=== PATIENT | female | born 1935 | race Caucasian/White ===

== ENCOUNTER 2020-07-07 09:01 | Outpatient (REF) | payer SELFPAY | END 2020-07-07 09:02 | disposition home or self-care (01) | LOC: HO.HAP 09:01 | PROVIDERS: Visit Provider Internal Medicine | DX: Z46.1 Encounter for fitting and adjustment of hearing aid (principal) | CPT/HCPCS: 92700 ==

== ENCOUNTER 2020-07-31 10:18 | Outpatient (REF) | payer SELFPAY | END 2020-07-31 10:19 | disposition home or self-care (01) | LOC: HO.HAP 10:18 | PROVIDERS: PCP Internal Medicine; Referring Provider Internal Medicine; Visit Provider Internal Medicine | DX: Z46.1 Encounter for fitting and adjustment of hearing aid (principal) | CPT/HCPCS: V5264 ==

== ENCOUNTER 2020-09-07 12:25 | Outpatient (REF) | payer SELFPAY | END 2020-09-07 12:26 | disposition home or self-care (01) | LOC: HO.HAP 12:25 | PROVIDERS: PCP Internal Medicine; Referring Provider Internal Medicine; Visit Provider Internal Medicine | DX: Z13.89 Encounter for screening for other disorder (principal) | CPT/HCPCS: 92700 ==

== ENCOUNTER 2021-01-03 09:58 | Outpatient (REF) | payer SELFPAY | END 2021-01-03 09:59 | disposition home or self-care (01) | LOC: HO.HAP 09:58 | PROVIDERS: Visit Provider Internal Medicine | DX: Z13.89 Encounter for screening for other disorder (principal) ==

== ENCOUNTER 2021-01-09 10:04 | Outpatient (REF) | payer SELFPAY | END 2021-01-09 10:05 | disposition home or self-care (01) | LOC: HO.HAP 10:04 | PROVIDERS: Visit Provider Internal Medicine | DX: Z13.89 Encounter for screening for other disorder (principal) ==

== ENCOUNTER 2021-01-30 09:39 | Outpatient (REF) | payer MEDICARE, SELFPAY ==
--- NOTE | 2021-01-30 14:58 | MHC.AU.HAS ---
Hearing Aid Evaluation Date of Visit: 01/30/21 Historical Information: Description of Hearing: Moderate to moderately severe sensorineural hearing loss bilaterally. Current personal amplification information, if applicable: Oticon Mayte 2 Pro RITE Summary: Patient has been unhappy with the RITE aids and would like to try an ITE style. She is hesitant to spend the money but agree to try them Hearing Aid Prescription: Based on the individual?s shared listening needs, communication environments, dexterity, desire for connectivity, and personal preferences, the following prescription for amplification has been made: Right ear: Hotel Operation Manager: Veeda Model: Hill 1600 ITE-R Battery Size: Rechargeable Color: [place] Left ear: Left ear prescription to be same as Right Hearing Aid above: Hotel Operation Manager: Gloria Model: Hill 1600 ITE-R Battery Size: Rechargeable Color: [place] Plan of Care: Patient wishes to purchase hearing aids as prescribed Action Taken/Action Needed: [place] Impressions Taken Medical Clearance to be requested from PCP/ENT Comments: Patient was undecided when she left. Son called to say go ahead with the order. She is hoping to get them fit before a wedding she is going to on February 10, but [facility] is not currently doing [facility] services. Did not put deposit down so will have to include in billing for fitting. Primary Diagnosis: H90.3 Bilateral Sensorineural Hearing Loss Signature: Provider: Andre Carmen, CCC-A
--- NOTE | 2021-01-30 14:59 | MHC.AU.AHA ---
Adult Audiological Evaluation Date of Visit: 01/30/21 Reason for Appointment: Audiological evaluation to monitor the status of Ms. Polk's hearing loss. She has a known bilateral sensorineural hearing loss and uses hearing aids. She feels that her hearing is gradually worsening. Previous Hearing Test Results: 04/13/2019- Moderate sloping to moderately severe sensorineural hearing loss bilaterally. Medical History: Medical History: Cancer Medical History: Abdominal aortic aneurysm, bladder cancer treated surgically, Melanoma, Congestive Heart failure, right and left carotid surgery Hearing Instrument History- Right Ear: Primary Special Educator: Oticon Model: Mayte 2 Pro cicaydaE Serial Number: [id number] Battery Size: 312 Repair Warranty: 03/24/18 Loss and Damage Warranty: 03/24/17 Dispensed By: [facility] Date of Fittin03/27/2016 Hearing Instrument History- Left Ear: Primary Special Educator: Oticon Model: Mayte 2 Pro cicaydaE Serial Number: [id number] Battery Size: 312 Warranty: 03/24/18 Loss and Damage Warranty: 03/24/17 Dispensed By: [facility] Date of Fittin03/27/2016 Otoscopy: Right Ear: Unremarkable Left Ear: Unremarkable Tympanometry: Tympanometry performed due to: To assess integrity of the middle ear system Right Ear: Normal Middle Ear System (Type A) Left Ear: Normal Middle Ear System (Type A) Hearing Evaluation: Transducer(s) Used: Insert Earphones, Bone Conduction Method: Conventional Stimuli Used: Pure tones Right Ear: Description of Hearing: Moderate sloping to moderately severe sensorineural hearing loss from 250-8000 Hz. Left Ear: Description of Hearing: Moderate sloping to moderately severe sensorineural hearing loss from 250-8000 Hz. Speech Recognition Threshold (SRT): Method Used: Monitored Live Voice Stimuli Used: Spondee Words Right Ear: 50 dBHL Left Ear: 45 dBHL Word Discrimination: Method: Recorded Lists Word Lists Used: NU-6 Right Ear: 72% at 85 dBHL Left Ear: 60% at 86 dBHL Most Comfortable Level (MCL): Right Ear: 70 dBHL Left Ear: 70 dBHL Comparison: Compared to the most recent evaluation: Hearing is stable. Word discrimination scores have decreased bilaterally. Recommendations: Audiological re-evaluation in one year. Trial with updated hearing aid technology in an ITE rechargeable aid is recommended. Discussed options. Patient decided she would like to trial Gloria Hill ITE-R aids. Aids ordered. Diagnosis: Primary Diagnosis: H90.3 Bilateral Sensorineural Hearing Loss Services Performed: Comprehensive Audiological Evaluation (CPT 29029) Tympanometry (CPT 72134) Signature: Provider: Andre Carmen, CCC-A
--- NOTE | 2021-01-30 15:00 | MHC.AU.MED ---
Medical Clearance for Hearing Instrumentation Date: 02/01/21 Patient Name: Kim Polk Date of : 1935 Referring Provider: Alli Logan MD We have seen your patient on 02/01/21 and have determined that they are a candidate for amplification (See accompanying report). Specifically, they would benefit from: Hearing aid use in both ears There is a statute that addresses Medical Evaluation Requirements prior to fitting a patient with a hearing aid. According to [place] statute 265 CMR:6.03(1), (a) General. Except as provided in 265 CMR 6.03(1)(b), a engineer sergeant shall not sell a hearing aid unless the prospective user has presented to the engineer sergeant a written statement signed by a licensed physician that states that the patient's hearing loss has been medically evaluated and the patient may be considered a candidate for a hearing aid. The medical evaluation must have taken place within the preceding six months. Please note: Due to the [place] Statute referenced above, we cannot accept a signature other than that of a licensed physician. FLUX CORE WELDER and PA signatures cannot be accepted. I am in agreement with the above recommendation. There is no medical contraindication for hearing instrumentation. Physician Signature Date Physician Name (Printed)
== END 2021-01-30 09:40 | disposition home or self-care (01) ==
LOC: HO.SH 09:39
PROVIDERS: Visit Provider Internal Medicine
DX: H90.3 Sensorineural hearing loss, bilateral (principal)
CPT/HCPCS: 92557; 92567

== ENCOUNTER 2021-02-08 15:27 | Outpatient (REF) | payer MEDICARE, SELFPAY | END 2021-02-08 15:28 | disposition home or self-care (01) | LOC: HO.HAP 15:27 | PROVIDERS: Visit Provider Internal Medicine | DX: Z46.1 Encounter for fitting and adjustment of hearing aid (principal); H90.3 Sensorineural hearing loss, bilateral | CPT/HCPCS: 92591; V5260; V5299 ==

== ENCOUNTER 2021-02-21 09:34 | Outpatient (REF) | payer SELFPAY | END 2021-02-21 09:35 | disposition home or self-care (01) | LOC: HO.HAP 09:34 | PROVIDERS: Visit Provider Internal Medicine | DX: Z13.89 Encounter for screening for other disorder (principal) ==

== ENCOUNTER 2021-02-22 19:25 | Emergency (ER) | payer MEDICARE, SELFPAY ==
--- NOTE | ~2021-02-22 | XR_ITS ---
EXAMINATION: XR TIBIA AND FIBULA, LEFT CLINICAL INFORMATION: Injury. COMPARISON: None TECHNIQUE: AP and lateral views of the left tibia and fibula were obtained. FINDINGS: The bones and soft tissues are normal. No fracture. There is an old avulsion fracture tip of medial malleolus. XR/XR tibia fibula LT 2V IMPRESSION: No acute fracture or bony abnormality left tibia or fibula.
[2021-02-22 19:39] VITALS: BP 176/71; PULSE 94; RESP 18; TEMP 36.8; O2SAT 94; BMI 24.5
--- NOTE | 2021-02-22 20:38 | ED.LOWEXIN ---
HPI - Extremity Injury (Lower) General Chief Complaint: Extremity Injury, Lower Stated Complaint: clot? Time Seen by Provider: 02/22/21 20:34 History of Present Illness HPI Narrative: Patient complains of painful swelling on right leg after she kicked her park into the edge of the car door when entering the car, she is taking Coumadin for a lower extremity DVT, no other injury no other complaint, this happened earlier this evening Related Data Allergies Allergy/AdvReac Type Severity Reaction Status Date / Time cashew nut Allergy Hives Verified 02/22/21 19:38 Latex, Natural Rubber Allergy Hives Verified 02/22/21 19:38 Penicillins [PCN] Allergy Hives Verified 02/22/21 19:38 shellfish derived Allergy Hives Verified 02/22/21 19:38 Sulfa (Sulfonamide Allergy Hives Verified 02/22/21 19:38 Antibiotics) Review of Systems Review of Systems: Positive for painful swollen area left lower park area Negatives are no fever no chills no dizziness no fainting no weakness no headache no chest pain no shortness of breath no numbness or weakness, no other injury Yes all other systems are reviewed and are negative PMFSH Past Medical History Source: nursing notes reviewed Medical History (Updated 02/23/21 @ 00:01 by Mel Harris) Aortic aneurysm, abdominal Bladder cancer Congestive heart failure (CHF) TIA (transient ischemic attack) Surgical History (Updated 02/22/21 @ 19:43 by Tami Walters) H/O carotid endarterectomy Social History Social History Advance Directives: No Advance Directives Information Provided: Yes Physical Exam Vital Signs: Vital Signs: Last Vital Signs Temp 98.3 F 02/22/21 19:39 Pulse 94 02/22/21 19:39 Resp 18 02/22/21 19:39 BP 176/71 H 02/22/21 19:39 Pulse Ox 94 02/22/21 19:39 Body Mass Index 24.5 General appearance is no acute distress, relaxed and cooperative Head is normocephalic atraumatic Neck is supple The chest is clear to auscultation bilaterally with symmetric equal breath sounds Heart no murmur auscultated Extremities the left lower pretibial part of the leg has an area of purple red swelling, hematoma with a raised palpable cord at the center, there is no surrounding erythema no other tenderness she has full range of motion in the knee and the ankle Neuro no acute motor or sensory deficit Course Course Course Narrative: X-ray was negative, patient ambulates comfortably, no laceration to sew and patient is discharged with diagnosis of hematoma MDM - Extremity Injury (Lower) Lab Data Labs: Lab Results 02/22/21 Range/Units 20:42 PT 32.9 H (10.8-13.0) SEC INR 2.7 H (0.9-1.1) Discharge Plan Discharge Clinical Impression: Hematoma of left lower leg Patient Disposition: Home, Self-Care Additional Instructions: I did not see any bony injury on the x-ray Her INR was 2.7 in the good range I believe it is a collection of blood under the skin that will resolve over time Return to ER any time for spreading redness worse pain and swelling, any worse condition or any concerns Interventions: ED Discharge Assessment Last Done: 02/22/21 21:16 Discharge Date/Time: 02/22/21 21:21
[2021-02-22 20:59] LABS: INTERNATIONAL NORM RATIO 2.7 (0.9-1.1); Prothrombin Time 32.9 SEC (10.8-13.0)
== END 2021-02-22 21:21 | disposition home or self-care (01) ==
PROVIDERS: Physician Assistant Medical; Emergency Provider Emergency Medicine Emergency Medical Services; PCP Internal Medicine
DX: S80.12XA Contusion of left lower leg, initial encounter (principal); R60.0 Localized edema; X58.XXXA Exposure to other specified factors, initial encounter; Y93.9 Activity, unspecified; Y92.9 Unspecified place or not applicable; Y99.9 Unspecified external cause status
CPT/HCPCS: 36415; 73590; 85610; 99283

== ENCOUNTER 2021-06-17 08:55 | Emergency (ER) | payer MEDICARE, SELFPAY ==
[2021-06-17] VITALS (8 sets, daily range): BP systolic 107–216; BP diastolic 59–94; PULSE 75–93; RESP 16; TEMP 36.7; O2SAT 96; BMI 25.0
--- NOTE | ~2021-06-17 | CT_ITS ---
EXAMINATION: CT HEAD WITHOUT CONTRAST CLINICAL INFORMATION: Fall. Head trauma. COMPARISON: None TECHNIQUE: Contiguous axial imaging was performed from the skull base to vertex without intravenous administration of contrast. This CT examination was performed using dose optimization techniques as appropriate, variously including the following: *Automated exposure control *Adjustment of mA and/or kV according to patient size (this includes techniques or standardized protocols for targeted exams where dose is matched to indication/reason for exam; i.e. extremities or head) *Use of iterative reconstruction technique DLP: 5 6 5 mGy-cm FINDINGS: There is no evidence of an extra-axial collection. There is no evidence of intra-axial or extra-axial hemorrhage. The ventricles and extra-axial CSF spaces are prominent suggestive of generalized atrophy. There is nonspecific periventricular white matter disease. 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 No mass, mass effect or acute infarct is seen. No skull fracture is seen. There is soft tissue swelling over the right posterior cortex of the skull. Visualized paranasal sinuses, mastoid air cells and ears are clear. CT/CT head/brain wo con IMPRESSION: No acute intracranial images. Generalized atrophy, nonspecific periventricular white matter disease and old right basal ganglia lacunar infarct. Scalp hematoma over the high posterior skull. No skull fracture is seen.
--- NOTE | ~2021-06-17 | XR_ITS ---
EXAMINATION: BILATERAL TIBIA AND FIBULA. CLINICAL INFORMATION: Fracture. COMPARISON: None TECHNIQUE: 2 views each tibia and fibula. FINDINGS: Right tibia: There is no visible acute fracture, dislocation or subluxation. The ankle mortise and subtalar joints are normal. There is a small retrocalcaneal enthesophyte. Left tibia and fibula: There is no visible acute fracture or dislocation is old avulsion injury tip of medial malleolus. The ankle mortise and subtalar joints are normal. There is minimal lateral malleolar soft tissue swelling. XR/XR tibia fibula RT 2V IMPRESSION: Small retrocalcaneal enthesophyte. No acute fracture or dislocation right tibia and fibula. Old avulsion injury tip of medial malleolus. No visible acute fracture or dislocation left tibia and fibula. There is minimal lateral malleolar soft tissue swelling
--- NOTE | ~2021-06-17 | CT_ITS ---
EXAMINATION: CT CERVICAL SPINE WITHOUT CONTRAST CLINICAL INFORMATION: Fall. Trauma. COMPARISON: None TECHNIQUE: Axial images through the cervical spine without contrast. Sagittal and coronal reconstructions on the technologist workstation were performed. This CT examination was performed using dose optimization techniques as appropriate, variously including the following: *Automated exposure control *Adjustment of mA and/or kV according to patient size (this includes techniques or standardized protocols for targeted exams where dose is matched to indication/reason for exam; i.e. extremities or head) *Use of iterative reconstruction technique DLP: 374 mGy-cm FINDINGS: There is mild 2 mm posterior subluxation of C5 and C6 with respect to C4 and C7. Bone alignment is otherwise normal. No fracture or dislocation is seen. There is degenerative spondylosis and degenerative disc disease, greatest at C5-C6 and C6-C7. There are degenerative changes at the C1 dens articulation. Prevertebral soft tissues are normal. There is bilateral carotid calcification. There are surgical clips in the bilateral lateral neck. The left lobe of the thyroid gland is slightly enlarged and nodular. The lung apices are clear. There is evidence of severe atherosclerotic disease with heavy calcification of the aortic arch and great vessel origins. The right brachiocephalic artery appears ectatic measuring 1.[address]/CT cervical spine wo con IMPRESSION: Degenerative changes. No fracture or dislocation seen.
--- NOTE | ~2021-06-17 | XR_ITS ---
EXAMINATION: BILATERAL TIBIA AND FIBULA. CLINICAL INFORMATION: Fracture. COMPARISON: None TECHNIQUE: 2 views each tibia and fibula. FINDINGS: Right tibia: There is no visible acute fracture, dislocation or subluxation. The ankle mortise and subtalar joints are normal. There is a small retrocalcaneal enthesophyte. Left tibia and fibula: There is no visible acute fracture or dislocation is old avulsion injury tip of medial malleolus. The ankle mortise and subtalar joints are normal. There is minimal lateral malleolar soft tissue swelling. XR/XR tibia fibula LT 2V IMPRESSION: Small retrocalcaneal enthesophyte. No acute fracture or dislocation right tibia and fibula. Old avulsion injury tip of medial malleolus. No visible acute fracture or dislocation left tibia and fibula. There is minimal lateral malleolar soft tissue swelling
--- NOTE | 2021-06-17 09:59 | ECG_ITS ---
Test Reason : FALL Blood Pressure : / mmHG Vent. Rate : 082 BPM Atrial Rate : 066 BPM P-R Int : 000 ms QRS Dur : 086 ms QT Int : 394 ms P-R-T Axes : 000 109 027 degrees QTc Int : 460 ms Atrial fibrillation Rightward axis Septal infarct , age undetermined Abnormal ECG No previous ECGs available Referred By: Galen Olsen Electronically Signed By:ANTONIO HOWARD
--- NOTE | 2021-06-17 10:07 | ED_ITS ---
HPI - General Adult General Chief complaint: Fall Stated complaint: FALL HEAD INJ Time Seen by Provider: 06/17/21 09:41 Source: patient Mode of arrival: ambulatory Limitations: no limitations History of Present Illness HPI narrative: Patient presents to ED for fall. Patient states this morning she got up from bed and she turned around and felt her legs gave out which causes to fall and hit her head on a night stand patient states she fell backwards onto her butt. Patient states mild headache. Patient is on blood thinner. Patient denies any loss of consciousness. She denies any dizziness, chest pain, heada cecil, abdominal pain, or shortness of breath before falling. Daughter and patient states this happened many times before and actually evaluated by physical therapy they cannot find a cause why her legs giving out. Patient only complains slight headache since fall. Related Data Allergies Allergy/AdvReac Type Severity Reaction Status Date / Time cashew nut Allergy Hives Verified 02/22/21 19:38 Latex, Natural Rubber Allergy Hives Verified 02/22/21 19:38 Penicillins [PCN] Allergy Hives Verified 02/22/21 19:38 shellfish derived Allergy Hives Verified 02/22/21 19:38 Sulfa (Sulfonamide Allergy Hives Verified 02/22/21 19:38 Antibiotics) Review of Systems Review of Systems: Yes all other systems are reviewed and are negative Constitutional: Constitutional: Reports as per HPI, Reports no additional constitutional complaints and Reports headache(s) Eyes: Eyes: Reports as per HPI and Reports no additional eye complaints ENT: Reports system reviewed and no additional complaints, except as documented, Reports as per HPI and Reports headache(s) Cardiovascular: Cardiovascular: Reports as per HPI and Reports no additional cardiovascular complaints Respiratory: Respiratory: Reports as per HPI and Reports no additional respiratory complaints Gastrointestinal: Gastrointestinal: Reports as per HPI and Reports no additional gastrointestinal complaints Genitourinary: Genitourinary: Reports no additional female genitourinary complaints and Reports as per HPI Musculoskeletal: Musculoskeletal: Reports no additional musculoskeletal c omplaints and Reports as per HPI Neurologic: Reports system reviewed and no additional complaints, except as documented, Reports as per HPI and Reports headache(s) Psychiatric: Psychiatric: Reports no additional psychiatric complaints and Reports as per HPI PMF Past Medical History Medical History (Updated 06/17/21 @ 14:45 by JORGE Forte) Aortic aneurysm, abdominal Bladder cancer Congestive heart failure (CHF) TIA (transient ischemic attack) Surgical History (Updated 02/22/21 @ 19:43 by Tami Walters) H/O carotid endarterectomy Social History Social History Alcohol intake: never Smoked in Last 30 Days: No Use of substances other than those prescribed or required for medical reasons: No Advance Directives: Yes Advance Directives Information Provided: No Advance Directives on File: No Physical Exam Vital Signs: Vital Signs: Last Vital Signs Temp 98.1 F 06/17/21 09:46 Pulse 85 06/17/21 16:13 Resp 16 06/17/21 14:51 BP 107/64 06/17/21 16:46 Pulse Ox 96 06/17/21 09:46 Oxygen Flow Rate 1 06/17/21 09:46 Body Mass Index 25.0 Const: General: cooperative, healthy appearing, comfortable, no acute distress, well developed, alert and awake Orientation/consciousness: patient oriented x3 HENMT: Head: Yes normal to inspection, Yes No palpable skull fracture present, Yes normocephalic and Yes abrasion (posterior hip) Head images: 1. Superficial abrasion. Mildly tenderness on palpation. Eyes: General: appearance normal, both eyes and all related structures Neck: Neck: Yes normal visual inspection, Yes full ROM, Yes no lymphadenopathy, Yes no meningeal signs, Yes trachea midline, Yes supple and No tender Chest: Chest palpation & inspection: normal inspection of the chest and normal palpation of entire chest wall Resp: Effort & Inspection: normal respiratory effort and able to speak in complete sentences Auscultation: clear to auscultation bilaterally GI: Inspection: Yes normal to inspection and No abdominal wall ecchymosis Palpation (GI): Soft to palpation, not firm, nontender, no guarding and not rigid : General: No CVA tenderness and Yes no CVA tenderness Back/Spine/Pelvis: Back: no CVA tenderness, No CVA tenderness and No back tenderness Skin: General skin exam: no rashes or lesions noted and elasticity normal Neuro: Other: Baseline can not really stand for long. Walked with walker this morning. Negative for slurred speech. Negative for facial droop. All extremities equal strength 5+. finger to nose and rapid hand movement intact.. General: patient oriented x3, no meningeal signs and CN's II-XI intact taya aterally Cranial nerves: Yes CN's II-XII intact bilaterally Extrem: Other: Patient able to move all extremities with equal strength. General: Yes normal to inspection and Yes full ROM Course Course Course Narrative: History physical exam indicate more mechanical exam below the basic labs EKG to make sure things are okay. Daughter states mother been evaluated many times for this in regards of legs giving out on her falling. Reevaluation(s) Reevaluation #1: EKG shows atrial fibrillation. Patient has passed medical history of atrial fibrillation. Troponin came back elevated. I went to re- evaluate patient and patient denies any chest pain or shortness of breath. Patient denies any history of any heart surgery or heart attacks. Spoke with Dr. Murry of Cardiology and he states just repeat a 2nd troponin and PE very unlikely due to patient on Coumadin. He states if troponin increased morning 50% than she need sfurther evaluation. He states if troponin decreased than patient can be dischargd. Orthostatics negative Time: 11:18 Reevaluation #2: Patient's 2nd troponin decreased. Patient presently asymptomatic. Presently patient be evaluated by adult protective caseworker emmanuel. Time: 14:04 Reevaluation #3: manager pmo Jamin organized visiting nurse and home physical therapy for patient. Patient will be spending the night at [facility]. Time: 14:40 Additional Reevaluation(s): Patient blood pressure was elevated to ED visit. Patient has history of high blood pressure but was taken off meds years ago because she was very sensitive to calcium channel blockers, ALISHA inhibitors, and beta blockers. Her daughter states patient will become hypotensive in the morning when she was on meds so PCP disconstinued high blood pressure medication. Patient is given clonidine 1 dose amlodipine and blood pressure dropped and resolved. Daughter and patient was informed they would not be disc harged with any blood pressure medication due to her sensitivity to high blood pressure medications and the fear of her being hypotensive at home. They will follow-up with her PCP tomorrow 16:42 Medical Decision Making MDM Narrative Medical decision making narrative: Fall. Contusion Differential Diagnosis Differential Diagnosis: Head injury fall Lab Data Result diagrams: 06/17/21 10:12 06/17/21 10:12 Labs: Lab Results 06/17/21 06/17/21 06/17/21 Range/Units 10:12 10:12 10:12 WBC 7.6 (4.8-10.8) X10*3/uL RBC 4.55 (4.20-5.50) X10*6/uL Hgb 13.5 (12.0-16.0) g/dl Hct 43.1 (37-47) % MCV 94.7 (80-98) fL MCH 29.7 (27.0-33.0) pg MCHC 31.3 (31.0-35.0) g/dl RDW 16.9 H (11.0-16.0) % Plt Count 179 (160-400) X10*3/uL MPV 10.4 (9.4-12.3) fL Immature Gran % (Auto) 0.3 (0.0-0.4) % Neut % (Auto) 82.6 H (45-73) % Lymph % (Auto) 9.1 L (20-40) % [place] % (Auto) 7.5 (2-11) % Eos % (Auto) 0.4 (0-4) % Baso % (Auto) 0.1 (0-2) % Lymph # (Auto) 0.7 L (1.2-4.9) X10*3/uL [place] # (Auto) 0.6 (0.1-1.2) X10*3/uL Eos # (Auto) 0.0 (0.0-0.4) X10*3/uL Baso # (Auto) 0.0 (0.0-0.2) X10*3/uL Abs Immat Gran (auto) 0.02 (0.00-0.03) X10*3/uL Absolute Neuts (auto) 6.3 (2.0-8.3) X10*3/uL Absolute Nucleated RBC 0.000 (0.0-0.012) X10*3/uL Nucleated RBC % (auto) 0.0 (0.0-0.2) /100WBC PT 25.9 H (9.9-13.0) SEC INR 2.2 H (0.9-1.1) APTT 56.1 H (24.1-38.0) SEC Sodium 138 (135-145) mmol/L Potassium 4.8 (3.3-5.1) mmol/L Chloride 94 L (96-108) mmol/L Carbon Dioxide 34 H (22-29) mmol/L Anion Gap 15 (12-20) BUN 27 H (9-16) mg/dL Creatinine 1.11 (0.5-1.4) mg/dL Estim Creat Clear Calc 30.6 Estimated GFR 47 Random Glucose 84 (60-115) mg/dL Calcium 10.1 (8.4-10.2) mg/dL Total Bilirubin 1.3 H (0.0-1.0) mg/dL AST 33 H (5-31) U/L ALT 10 (0-31) U/L Alkaline Phosphatase 63 (39-117) U/L Troponin I High Sens (<3.5-17.0) ng/L Total Protein 6.3 L (6.5-8.0) g/dL Albumin 3.8 (3.5-5.0) g/dL 06/17/21 06/17/21 Range/Units 10:12 13:19 WBC (4.8-10.8) X10*3/uL RBC (4.20-5.50) X10*6/uL Hgb (12.0-16.0) g/dl Hct (37-47) % MCV (80-98) fL MCH (27.0-33.0) pg MCHC (31.0-35.0) g/dl RDW (11.0-16.0) % Plt Count (160-400) X10*3/uL MPV (9.4-12.3) fL Immature Gran % (Auto) (0.0-0.4) % Neut % (Auto) (45-73) % Lymph % (Auto) (20-40) % [place] % (Auto) (2-11) % Eos % (Auto) (0-4) % Baso % (Auto) (0-2) % Lymph # (Auto) (1.2-4.9) X10*3/uL [place] # (Auto) (0.1-1.2) X10*3/uL Eos # (Auto) (0.0-0.4) X10*3/uL Baso # (Auto) (0.0-0.2) X10*3/uL Abs Immat Gran (auto) (0.00-0.03) X10*3/uL Absolute Neuts (auto) (2.0-8.3) X10*3/uL Absolute Nucleated RBC (0.0-0.012) X10*3/uL Nucleated RBC % (auto) (0.0-0.2) /100WBC PT (9.9-13.0) SEC INR (0.9-1.1) APTT (24.1-38.0) SEC Sodium (135-145) mmol/L Potassium (3.3-5.1) mmol/L Chloride (96-108) mmol/L Carbon Dioxide (22-29) mmol/L Anion Gap (12-20) BUN (9-16) mg/dL Creatinine (0.5-1.4) mg/dL Estim Creat Clear Calc Estimated GFR Random Glucose (60-115) mg/dL Calcium (8.4-10.2) mg/dL Total Bilirubin (0.0-1.0) mg/dL AST (5-31) U/L ALT (0-31) U/L Alkaline Phosphatase (39-117) U/L Troponin I High Sens 158.7 H* 111.4 H* (<3.5-17.0) ng/L Total Protein (6.5-8.0) g/dL Albumin (3.5-5.0) g/dL ECG Data Interpretation: Atrial fibrillation. Ventricular rate 82. QRS 86. QTC 460. Negative STEMI Discharge Plan Discharge Clinical Impression: Head injury Patient Disposition: Home, Self-Care Instructions: Head Injury (ED), Fall Prevention (ED) Additional Instructions: Return to the ED immediately for any chest pain, shortness of breath, headache, vomiting, rectal bleeding, vomiting blood, dizziness, slurred speech, loss of vision, paralysis of extremities, or any other concerning symptoms. Please follow-up with the primary care provider Interventions: ED Discharge Assessment Last Done: 06/17/21 16:46 Discharge Date/Time: 06/17/21 16:47 Print Language: Finnish
[2021-06-17 10:17] LABS: Basophils Percent Auto 0.1 % (0-2); Eosinophils Percent Auto 0.4 % (0-4); Hematocrit 43.1 % (37-47); Hemoglobin 13.5 g/dl (12.0-16.0); Imm Gran Abs Auto 0.02 X10*3/uL (0.00-0.03); Imm Gran Pct Auto 0.3 % (0.0-0.4); Lymphocytes Absolute Auto 0.7 X10*3/uL (1.2-4.9); Lymphocytes Percent Auto 9.1 % (20-40); MANUAL DIFF FLAG NO; Mean Corpuscular HGB Conc 31.3 g/dl (31.0-35.0); Mean Corpuscular Hemoglobin 29.7 pg (27.0-33.0); Mean Corpuscular Volume 94.7 fL (80-98); Mean Platelet Volume 10.4 fL (9.4-12.3); Monocytes Absolute Auto 0.6 X10*3/uL (0.1-1.2); Monocytes Percent Auto 7.5 % (2-11); Neutrophils Absolute Auto 6.3 X10*3/uL (2.0-8.3); Neutrophils Percent Auto 82.6 % (45-73); Platelet Count 179 X10*3/uL (160-400); Red Blood Count 4.55 X10*6/uL (4.20-5.50); Red Cell Distribution Width 16.9 % (11.0-16.0); White Blood Count 7.6 X10*3/uL (4.8-10.8)
[2021-06-17 10:28] LABS: INTERNATIONAL NORM RATIO 2.2 (0.9-1.1); Prothrombin Time 25.9 SEC (9.9-13.0)
[2021-06-17 10:31] LABS: Partial Thromboplastin Time 56.1 SEC (24.1-38.0)
[2021-06-17 10:39] LABS: Alanine Aminotransferase 10 U/L (0-31); Albumin Level 3.8 g/dL (3.5-5.0); Alkaline Phosphatase 63 U/L (39-117); Anion Gap 15 (12-20); Aspartate Amino Transferase 33 U/L (5-31); Bilirubin Total 1.3 mg/dL (0.0-1.0); Blood Urea Nitrogen 27 mg/dL (9-16); Calcium 10.1 mg/dL (8.4-10.2); Carbon Dioxide 34 mmol/L (22-29); Chloride 94 mmol/L (96-108); Creatinine Clr Calc Pharmacy 30.6; Estimated Glomerular Filt Rate 47; Glucose Random 84 mg/dL (60-115); Potassium 4.8 mmol/L (3.3-5.1); Sodium 138 mmol/L (135-145); Total Protein 6.3 g/dL (6.5-8.0)
[2021-06-17 10:45] LABS: Troponin-I High Sensitivity 158.7 ng/L (<3.5-17.0)
[2021-06-17 13:48] LABS: Troponin-I High Sensitivity 111.4 ng/L (<3.5-17.0)
--- NOTE | 2021-06-17 14:12 | PC.NURSE ---
pt awaiting cm
--- NOTE | 2021-06-17 14:17 | MHC.CM.ED ---
per request from P.A. and pt's daughter a ref. has been made to [facility] for nsg and home PT. [facility] was notified that patient will be staying at daughter's home after dc from the [facility] e.d. address and phone numbers for daughter , anibal, where given to [facility]. cm to cont. to follow. PA and RN in the e.d. are aware of this dc plan.
[2021-06-17] MEDS: cloNIDine HCL 0.2 MG TABLET PO (15:05)
[2021-06-17] MEDS: amLODIPine Besylate 5 MG TABLET PO (16:13)
== END 2021-06-17 16:47 | disposition home or self-care (01) ==
PROVIDERS: Physician Assistant; Emergency Provider Emergency Medicine Emergency Medical Services; PCP Internal Medicine
DX: S09.90XA Unspecified injury of head, initial encounter (principal); G44.309 Post-traumatic headache, unspecified, not intractable; W06.XXXA Fall from bed, initial encounter; Y93.9 Activity, unspecified; Y92.003 Bedroom of unspecified non-institutional (private) residence as the place of occurrence of the external cause; Y99.9 Unspecified external cause status; Z79.899 Other long term (current) drug therapy; Z91.81 History of falling
CPT/HCPCS: 36415; 70450; 72125; 73590; 80053; 84484; 85025; 85610; 85730; 93005; 99285

== ENCOUNTER 2021-08-14 13:04 | Outpatient (REF) | payer SELFPAY ==
--- NOTE | 2021-08-17 11:56 | MHC.AU.HFU ---
Hearing Instrument Follow-Up- Binaural Date of Visit: 08/14/21 Right Ear: Online Education Manager: Mavent Model: Hill 1600 ITC-R Serial Number: [id number] Repair Warranty: 03/08/2024 Battery Size: Rechargeable Color: Luyando Glue Spreading Machine Operator: Size 2 85 gain Type of Wax Guard: Hear Clear Dispensed By: [facility] Date of Fittin02/08/2021 Left Ear:Online Education Manager: Gloria Model: Hill 1600 ITC-R Serial Number: [id number] Repair Warranty: 03/08/2024 Battery Size: Rechargeable Color: Luyando Glue Spreading Machine Operator: Size 3 85 gain Type of Wax Guard: Hear Clear Dispensed By: [facility] Date of Fittin02/08/2021 Follow-Up Summary: Hearing Aid Problem - Patient is accompanied today by her son. They report Kim is not hearing well with the aids is constantly pushing the aids, either because she feels the aids are coming out of the ears and/or she is not hearing well and tries to change the volume level. She hits the volume control and sometimes turns the aids completely off when inserting aids and when pushing the aids because she is afraid they are moving out. She is getting very frustrated because sounds are either too loud or too soft. Discussed the problem and possible solutions. Decided to DEACTIVATE THE VOLUME CONTROL AND THE MUTE FUNCTION TO MAKE EVERYTHING AUTOMATIC. Patient reports the sound quality still feels muffled despite being at the middle setting all the time. Based on the audiogram, decreased louds and moderate sounds at 750-2000 Hz 3 dB and increased overall at 0143-2109 Hz approximately 6 dB. Patient reported clearer sound after the adjustment while in the office. Patient will try as set. CALLED [facility] AND SPOKE WITH TIM ABOUT THE POTENTIAL LOOSE FIT OF THE AIDS TO DISCUSS POSSIBLE SOLUTIONS. SHE RECOMMENDS EITHER TAKING NEW IMPRESSIONS TO MAKE CANAL LENGTH LONGER OR ADD A SOFT COAT TO THE AIDS. I asked if the faceplate could be more recessed, but due to the needed components they cannot be recessed any farther. Patient does not want to send the aids in at this time. If problem persists she will schedule an appointment. Recommendations:Hearing instrument follow-up or maintenance as needed. Please contact our clinic with any questions or concerns. Diagnosis Code(s):Primary Diagnosis: H90.3 Bilateral Sensorineural Hearing Loss Services Performed:RILEY Non-Quantity Charges: HANC: NonBillable Event Signature: Provider: Andre Vance, JOJO-A
== END 2021-08-14 13:05 | disposition home or self-care (01) ==
LOC: HO.HAP 13:04
PROVIDERS: Visit Provider Internal Medicine
DX: Z13.89 Encounter for screening for other disorder (principal)

== ENCOUNTER 2021-09-05 09:09 | Inpatient (IN) | payer MEDICARE, SELFPAY ==
[2021-09-05] VITALS (12 sets, daily range): BP systolic 102–197; BP diastolic 44–100; PULSE 79–113; RESP 15–20; TEMP 36.6–36.9; O2SAT 77–100; BMI 25.4
--- NOTE | ~2021-09-05 | CT_ITS ---
EXAMINATION: CT HEAD WITHOUT CONTRAST CLINICAL INFORMATION: Leg weakness and shakiness COMPARISON: Previous head CT May 2021 TECHNIQUE: Contiguous axial imaging was performed from the skull base to vertex without intravenous administration of contrast. This CT examination was performed using dose optimization techniques as appropriate, variously including the following: *Automated exposure control *Adjustment of mA and/or kV according to patient size (this includes techniques or standardized protocols for targeted exams where dose is matched to indication/reason for exam; i.e. extremities or head) *Use of iterative reconstruction technique DLP: 524 mGy-cm FINDINGS: There is no evidence of an extra-axial collection. There is no evidence of intra-axial or extra-axial hemorrhage. Ventricles and extra-axial CSF spaces are slightly prominent suggestive of mild generalized atrophy. There is nonspecific periventricular white matter disease. 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 No mass, mass effect or acute infarct is seen. Review of bone windows is normal. No skull fracture is seen. Visualized mastoid air cells, paranasal sinuses and middle ears are clear. CT/CT head/brain wo con IMPRESSION: No acute findings. No change from May 2021 exam.
--- NOTE | ~2021-09-05 | CT_ITS ---
EXAMINATION: CT CHEST WITHOUT CONTRAST CLINICAL INFORMATION: Shortness of breath. Abnormal chest x-ray. COMPARISON: Chest radiograph done on 09/10/2021. TECHNIQUE: Multidetector volumetric CT imaging of the chest was done. Axial MIP volume rendering provided. Sagittal and coronal reformatted images were obtained. This CT examination was performed using dose optimization techniques as appropriate, variously including the following: *Automated exposure control *Adjustment of mA and/or kV according to patient size (this includes techniques or standardized protocols for targeted exams where dose is matched to indication/reason for exam; i.e. extremities or head) *Use of iterative reconstruction technique DLP: 119 mGy-cm FINDINGS: CERAMIC TILE SETTER: Abnormal showing evidence of dense opacification at left lung base. LUNGS: There is significant asymmetric low lung volume noted within the left hemithorax with ipsilateral displacement of the mediastinum showing moderate to severe collapse consolidation of the left lower lobe, and multifocal patchy groundglass airspace disease within the left upper lobe and dense airspace consolidation within the lingula. Dense airspace consolidation is also noted within the right lung base. Evidence of pleural-based focal thickening is noted within the posterior medial aspect of the mid part of the right hemithorax (266:7). Remainder of the aerated right lung is clear. The tracheobronchial tree is patent however, the left lower lobe as well as the central part of the left upper lobe bronchi are not visualized, possibility of central endobronchial lesion especially involving the left lower lobe may have similar appearance. MEDIASTINUM: Multiple shotty precarinal lymph nodes are noted. There is evidence of cardiomegaly present involving all 4 cardiac chambers. Extensive atherosclerotic disease of the aorta and is branches including significant coronary arterial calcifications are noted. Mitral valve annular calcification is also noted. The main pulmonary artery is enlarged, measures 4.2 cm as compared to the measurement of the adjacent aorta which is measuring 3.7 cm. The finding would be suspicious for underlying pulmonary arterial hypertension. PLEURA: Bilateral trace/small simple appearing nondrainable pleural effusions (right greater than left) are noted. AXILLA: No lymphadenopathy. UPPER ABDOMEN: Remarkable for thickening of both adrenal glands without any discrete mass. OSSEOUS STRUCTURES: No suspicious focal lesion. CT/CT chest wo con IMPRESSION: 1. Abnormal study. Asymmetric low lung volume within the left hemithorax with moderate to severe collapse consolidation of left lower lobe and multifocal patchy airspace disease within the left upper lobe. Dense airspace consolidation is also noted within the lingula and right lower lobe of the lung. A central endobronchial lesion involving the left lower lobe of the lung may have similar appearance. 2. Bilateral trace/small simple appearing nondrainable pleural effusions (right greater than left) are noted. 3. Thickening of both adrenal glands without any discrete mass. 4. Extensive atherosclerotic disease of the aorta and is branches including significant coronary artery calcifications and likely pulmonary arterial hypertension Fleischner guidelines were followed.
--- NOTE | ~2021-09-05 | XR_ITS ---
EXAMINATION: XR CHEST CLINICAL INFORMATION: Dyspnea COMPARISON: None TECHNIQUE: AP portable view of the chest was obtained. FINDINGS: The cardiopericardial silhouette is enlarged. No evidence of airspace edema. There is some mild peribronchial cuffing present. There is bibasilar disease present with question small pleural effusions. There is some fluid seen along the horizontal fissure. No pneumothorax. XR/XR chest 1V IMPRESSION: Cardiomegaly without airspace edema. There does appear to be some pulmonary vascular congestion with some interstitial prominence which may be related to early interstitial edema. Bilateral lower lobe disease with probable pleural effusions.
--- NOTE | ~2021-09-05 | XR_ITS ---
EXAMINATION: XR CHEST CLINICAL INFORMATION: SOB. COMPARISON: None TECHNIQUE: Frontal view of the chest was obtained. FINDINGS: The lungs are well-expanded increased pulmonary vascularity suggestive of mild pulmonary vascular congestion. There is mild haziness throughout the left lung likely underlying pleural effusion. Heart size is enlarged. No gross bony modality. XR/XR chest 1V IMPRESSION: Cardiomegaly with CHF. Underlying infiltrate is not excluded. There is diffuse opacification of left lung likely underlying pleural effusion.
--- NOTE | 2021-09-05 09:26 | ECG_ITS ---
Test Reason : sob Blood Pressure : / mmHG Vent. Rate : 101 BPM Atrial Rate : 000 BPM P-R Int : 000 ms QRS Dur : 094 ms QT Int : 358 ms P-R-T Axes : 000 115 -21 degrees QTc Int : 464 ms Atrial flutter with variable block with premature ventricular or aberrantly conducted complexes Left posterior fascicular block Abnormal ECG When compared with ECG of 17-JUN-2021 10:34, Atrial flutter present Referred By: Crissy Mejia Electronically Signed By:Tavares Murry
--- NOTE | 2021-09-05 09:30 | ED_ITS ---
HPI - Weakness General Chief complaint: Dyspnea Stated complaint: SOB Time Seen by Provider: 09/05/21 09:18 Source: patient, EMS and old records reviewed Mode of arrival: EMS Limitations: no limitations History of Present Illness Complaint: difficulty walking Onset (ago): month(s) (but this AM her legs felt shaky and weak) Duration: constant Location: LLE and RLE Migration: none Severity: mild Quality: other (they feel shaky) Relieving factors: none Exacerbating factors: movement Context: history of similar Associated symptoms: denies other symptoms and other (daughter told EMS that this AM she went to check on her and noted her sats were low 70s when laying flat on her normal 1L NC recently on bumex and metolazone) Related Data Home Medications Medication Instructions Recorded Confirmed Bifidobacterium infantis 10.5 mg 10.5 mg PO DAILY 09/05/21 09/05/21 (10 million cell) chewable tablet (Align) albuterol sulfate 90 mcg/actuation 2 puff INHALATION Q4H PRN 09/05/21 09/05/21 aerosol inhaler allopurinol 100 mg tablet 100 tab PO DAILY 09/05/21 09/05/21 amlodipine 2.5 mg tablet 2.5 tab PO DAILY 09/05/21 09/05/21 aspirin 81 mg chewable tablet 81 mg PO DAILY 09/05/21 09/05/21 brimonidine 0.2 % eye drops 1 drp OPHTHALMIC (EYE) BID 09/05/21 09/05/21 bumetanide 2 mg tablet 2 mg PO SUTUTHSA@2100 09/05/21 09/05/21 bumetanide 2 mg tablet 4 mg PO MOWEFR@2100 09/05/21 09/05/21 cholecalciferol (vitamin D3) 50 50 mcg PO DAILY 09/05/21 09/05/21 mcg (2,000 unit) tablet (Vitamin D3) docusate sodium 100 mg capsule 100 mg PO DAILY 09/05/21 09/05/21 (Colace) ezetimibe 10 mg tablet 10 mg PO DAILY 09/05/21 09/05/21 fentanyl 50 mcg/hr transdermal 1 patch TOPICAL Q3D 09/05/21 09/05/21 patch gabapentin 100 mg capsule 200 mg PO BEDTIME 09/05/21 09/05/21 inulin 2 gram chewable tablet 8 g PO DAILY 09/05/21 09/05/21 (Fiber Gummies) lactase 3,000 unit tablet (Lactaid) 3,000 unit PO QID PRN 09/05/21 09/05/21 latanoprost 0.005 % eye drops 1 drp OPHTHALMIC (EYE) BEDTIME 09/05/21 09/05/21 metolazone 5 mg tablet 5 mg PO SA@0900 09/05/21 09/05/21 multivitamin 1 tab PO DAILY 09/05/21 09/05/21 red yeast rice 600 mg tablet 600 mg PO DAILY 09/05/21 09/05/21 umeclidinium 62.5 mcg/actuation 1 puff INHALATION DAILY 09/05/21 09/05/21 blister powder for inhalation (Incruse Ellipta) vitamins A,C,Q-vgzr-tcwfyu 14,320 1 cap PO BID 09/05/21 09/05/21 unit-226 mg-200 unit capsule (PreserVision AREDS) warfarin 2.5 mg tablet 2.5 mg PO DAILY@1800 09/05/21 09/05/21 Allergies Allergy/AdvReac Type Severity Reaction Status Date / Time cashew nut Allergy Hives Verified 02/22/21 19:38 Latex, Natural Rubber Allergy Hives Verified 02/22/21 19:38 Penicillins [PCN] Allergy Hives Verified 02/22/21 19:38 shellfish derived Allergy Hives Verified 02/22/21 19:38 Sulfa (Sulfonamide Allergy Hives Verified 02/22/21 19:38 Antibiotics) Review of Systems Review of Systems: Constitutional : No Weight loss, No Fever, No Chills, No Fatigue, No Malaise ENT/Mouth : No sore throat, No Rhinorrhea Eyes: No Eye Pain, No Swelling, No Redness Cardiovascular : No Chest Pain, No SOB, No Dyspnea on Exertion, No Orthopnea, No Edema, No Palpitations Respiratory : No Cough, No Sputum, No Wheezing Gastrointestinal : No Nausea, No Vomiting, No Diarrhea, No Constipation, No abdominal Pain, No Hematochezia, No Melena Genitourinary : No Dysuria, No Urinary Frequency, No Hematuria, Musculoskeletal : No joint pain, No Myalgias, No Joint Swelling Skin : No Skin Lesions, No rash Neuro : pos Weakness, No Numbness, No Dizziness, No Headache, pos diff walking at times Psych : No Anxiety/Panic, No Depression Heme/Lymph: No Bruising, No Bleeding,No Lymphadenopathy Endocrine : No Polyuria, No Polydipsia All other systems reviewed and are negative [facility] Past Medical History Attestation statement: The following information was validated with the patient. Medical History (Updated 09/05/21 @ 11:45 by Crissy Mejia DO) Afib Aortic aneurysm, abdominal Bladder cancer Congestive heart failure (CHF) TIA (transient ischemic attack) Surgical History (Updated 02/22/21 @ 19:43 by Tami Walters) H/O carotid endarterectomy Social History Social History (Updated 09/05/21 @ 09:32 by Crissy Mejia DO) Alcohol intake: never Patient Tobacco Use Status: Never used Tobacco Use of substances other than those prescribed or required for medical reasons: No Advance Directives: No Advance Directives Information Provided: No Physical Exam Vital Signs: Vital Signs: Last Vital Signs Temp 98.2 F 09/05/21 09:38 Pulse 102 H 09/05/21 11:45 Resp 15 09/05/21 11:45 BP 186/71 H 09/05/21 11:45 Pulse Ox 95 09/05/21 11:45 Oxygen Flow Rate 1 09/05/21 09:38 BMI result Body Mass Index 25.4 Appearance: Alert. Oriented X3. No acute distress. Eyes: Pupils equal, round and reactive to light. ENT: Pharynx normal. Neck: Normal inspection. Neck supple. CVS: Normal heart rate and rhythm. Pulses normal. Respiratory: No respiratory distress. Breath sounds diminished at bases, fine rales noted Abdomen: Soft and non-tender. Skin: Skin warm and dry. Normal skin color. Normal skin turgor. Extremities: No lower extremity edema. L anterior park hematoma noted Neuro: Oriented X 3. No motor deficit. No sensory deficit. Course Course Course Narrative: no WBC count afebrile suspect CHF, given IV bumex on arrival, BP improved 93% on 3L NC patient denies dyspnea, RR 20 BP fluctuates up and down DNR/DNI per [facility] notes, compensated VBG review of [facility] notes show that her BP does fluctuate up and down from 200s to low 100s at times and in the past has been taken off medications MDM - Weakness MDM Narrative Medical decision making narrative: 85 yo female with hx of CHF, aortic aneurysm, TIA, on coumadin here with c/o LE weakness and feeling her legs are shaky she denies falling recently - her daughter did note that this morning her sats were low in the 70s while laying flat she denies CP/SOB to me but her sats were 89% on arrival in the ED on her baseline 1L NC. Will obtain labs, EKG, CXR, bnp, tro ponin, COVID swab, given xopenex. Dispo per results and findings. Lab Data Result diagrams: 09/05/21 11:12 09/05/21 11:10 Labs: Lab Results 09/05/21 09/05/21 09/05/21 Range/Units 11:10 11:10 11:10 WBC (4.8-10.8) X10*3/uL RBC (4.20-5.50) X10*6/uL Hgb (12.0-16.0) g/dl Hct (37.0-47.0) % MCV (80.0-98.0) fL MCH (27.0-33.0) pg MCHC (31.0-35.0) g/dl RDW (11.0-16.0) % Plt Count (160-400) X10*3/uL MPV (9.4-12.3) fL Immature Gran % (Auto) (0.0-0.4) % Neut % (Auto) (45-73) % Lymph % (Auto) (20-40) % [place] % (Auto) (2-11) % Eos % (Auto) (0-4) % Baso % (Auto) (0-2) % Lymph # (Auto) (1.2-4.9) X10*3/uL [place] # (Auto) (0.1-1.2) X10*3/uL Eos # (Auto) (0.0-0.4) X10*3/uL Baso # (Auto) (0.0-0.2) X10*3/uL Abs Immat Gran (auto) (0.00-0.03) X10*3/uL Absolute Neuts (auto) (2.0-8.3) x10*3/uL Absolute Nucleated RBC (0.0-0.012) X10*3/uL Nucleated RBC % (auto) (0.0-0.2) /100WBC PT 20.0 H (9.9-13.0) SEC INR 1.7 H (0.9-1.1) APTT 50.5 H (24.1-38.0) SEC VBG pH (7.32-7.43) VBG pCO2 mmHg VBG pO2 mmHg VBG HCO3 (22-26) mmol/L VBG O2 Saturation % VBG Base Excess mmol/L Sodium 140 (135-145) mmol/L Potassium 3.5 D (3.3-5.1) mmol/L Chloride 83 L (96-108) mmol/L Carbon Dioxide 47 H* D (22-29) mmol/L Anion Gap 14 (12-20) BUN 25 H (9-16) mg/dL Creatinine 0.81 (0.5-1.4) mg/dL Estim Creat Clear Calc 42.2 Estimated GFR > 60 Random Glucose 108 (60-115) mg/dL Calcium 10.1 (8.4-10.2) mg/dL Magnesium 1.9 (1.6-2.6) mg/dL Total Bilirubin 1.5 H (0.0-1.0) mg/dL Direct Bilirubin 1.0 H (0.0-0.5) mg/dL AST 32 H (5-31) U/L ALT 15 (0-31) U/L Alkaline Phosphatase 89 D (39-117) U/L Troponin I High Sens (<3.5-17.0) ng/L B-Natriuretic Peptide (<100) pg/mL Total Protein 6.9 (6.5-8.0) g/dL Albumin 4.0 (3.5-5.0) g/dL Urine Color Urine Appearance Urine pH (5.0-8.0) Ur Specific [place] (1.005-1.025) Urine Protein (NEG-TRACE) MG/DL Urine Glucose (UA) (NEG) MG/DL Urine Ketones (NEG) MG/DL Urine Blood (NEG) Urine Nitrite (NEG) Ur Leukocyte Esterase (NEG) Urine RBC (0) /HPF Urine WBC (0-4) /HPF Ur Squamous Epith Cells /LPF Urine Bacteria /LPF COVID-19 ([facility]) Negative (Negative) COVID-19 Clin Com See Note 09/05/21 09/05/21 09/05/21 Range/Units 11:10 11:12 11:12 WBC 9.8 (4.8-10.8) X10*3/uL RBC 4.24 (4.20-5.50) X10*6/uL Hgb 12.8 (12.0-16.0) g/dl Hct 42.4 (37.0-47.0) % MCV 100.0 H (80.0-98.0) fL MCH 30.2 (27.0-33.0) pg MCHC 30.2 L (31.0-35.0) g/dl RDW 16.4 H (11.0-16.0) % Plt Count 245 (160-400) X10*3/uL MPV 9.5 (9.4-12.3) fL Immature Gran % (Auto) 0.3 (0.0-0.4) % Neut % (Auto) 78.4 H (45-73) % Lymph % (Auto) 9.5 L (20-40) % [place] % (Auto) 8.2 (2-11) % Eos % (Auto) 3.3 (0-4) % Baso % (Auto) 0.3 (0-2) % Lymph # (Auto) 0.9 L (1.2-4.9) X10*3/uL [place] # (Auto) 0.8 (0.1-1.2) X10*3/uL Eos # (Auto) 0.3 (0.0-0.4) X10*3/uL Baso # (Auto) 0.0 (0.0-0.2) X10*3/uL Abs Immat Gran (auto) 0.03 (0.00-0.03) X10*3/uL Absolute Neuts (auto) 7.7 (2.0-8.3) x10*3/uL Absolute Nucleated RBC 0.000 (0.0-0.012) X10*3/uL Nucleated RBC % (auto) 0.0 (0.0-0.2) /100WBC PT (9.9-13.0) SEC INR (0.9-1.1) APTT (24.1-38.0) SEC VBG pH (7.32-7.43) VBG pCO2 mmHg VBG pO2 mmHg VBG HCO3 (22-26) mmol/L VBG O2 Saturation % VBG Base Excess mmol/L Sodium (135-145) mmol/L Potassium (3.3-5.1) mmol/L Chloride (96-108) mmol/L Carbon Dioxide (22-29) mmol/L Anion Gap (12-20) BUN (9-16) mg/dL Creatinine (0.5-1.4) mg/dL Estim Creat Clear Calc Estimated GFR Random Glucose (60-115) mg/dL Calcium (8.4-10.2) mg/dL Magnesium (1.6-2.6) mg/dL Total Bilirubin (0.0-1.0) mg/dL Direct Bilirubin (0.0-0.5) mg/dL AST (5-31) U/L ALT (0-31) U/L Alkaline Phosphatase (39-117) U/L Troponin I High Sens 82.5 H* (<3.5-17.0) ng/L B-Natriuretic Peptide 800 H (<100) pg/mL Total Protein (6.5-8.0) g/dL Albumin (3.5-5.0) g/dL Urine Color Urine Appearance Urine pH (5.0-8.0) Ur Specific [place] (1.005-1.025) Urine Protein (NEG-TRACE) MG/DL Urine Glucose (UA) (NEG) MG/DL Urine Ketones (NEG) MG/DL Urine Blood (NEG) Urine Nitrite (NEG) Ur Leukocyte Esterase (NEG) Urine RBC (0) /HPF Urine WBC (0-4) /HPF Ur Squamous Epith Cells /LPF Urine Bacteria /LPF COVID-19 ([facility]) (Negative) COVID-19 Clin Com 09/05/21 09/05/21 Range/Units 11:43 12:15 WBC (4.8-10.8) X10*3/uL RBC (4.20-5.50) X10*6/uL Hgb (12.0-16.0) g/dl Hct (37.0-47.0) % MCV (80.0-98.0) fL MCH (27.0-33.0) pg MCHC (31.0-35.0) g/dl RDW (11.0-16.0) % Plt Count (160-400) X10*3/uL MPV (9.4-12.3) fL Immature Gran % (Auto) (0.0-0.4) % Neut % (Auto) (45-73) % Lymph % (Auto) (20-40) % [place] % (Auto) (2-11) % Eos % (Auto) (0-4) % Baso % (Auto) (0-2) % Lymph # (Auto) (1.2-4.9) X10*3/uL [place] # (Auto) (0.1-1.2) X10*3/uL Eos # (Auto) (0.0-0.4) X10*3/uL Baso # (Auto) (0.0-0.2) X10*3/uL Abs Immat Gran (auto) (0.00-0.03) X10*3/uL Absolute Neuts (auto) (2.0-8.3) x10*3/uL Absolute Nucleated RBC (0.0-0.012) X10*3/uL Nucleated RBC % (auto) (0.0-0.2) /100WBC PT (9.9-13.0) SEC INR (0.9-1.1) APTT (24.1-38.0) SEC VBG pH 7.38 (7.32-7.43) VBG pCO2 96 mmHg VBG pO2 57 mmHg VBG HCO3 58 H (22-26) mmol/L VBG O2 Saturation 80.0 % VBG Base Excess 25.7 mmol/L Sodium (135-145) mmol/L Potassium (3.3-5.1) mmol/L Chloride (96-108) mmol/L Carbon Dioxide (22-29) mmol/L Anion Gap (12-20) BUN (9-16) mg/dL Creatinine (0.5-1.4) mg/dL Estim Creat Clear Calc Estimated GFR Random Glucose (60-115) mg/dL Calcium (8.4-10.2) mg/dL Magnesium (1.6-2.6) mg/dL Total Bilirubin (0.0-1.0) mg/dL Direct Bilirubin (0.0-0.5) mg/dL AST (5-31) U/L ALT (0-31) U/L Alkaline Phosphatase (39-117) U/L Troponin I High Sens (<3.5-17.0) ng/L B-Natriuretic Peptide (<100) pg/mL Total Protein (6.5-8.0) g/dL Albumin (3.5-5.0) g/dL Urine Color YELLOW Urine Appearance CLEAR Urine pH 6.5 (5.0-8.0) Ur Specific [place] 1.010 (1.005-1.025) Urine Protein 1+ H (NEG-TRACE) MG/DL Urine Glucose (UA) NEG (NEG) MG/DL Urine Ketones NEG (NEG) MG/DL Urine Blood NEG (NEG) Urine Nitrite NEG (NEG) Ur Leukocyte Esterase 1+ H (NEG) Urine RBC 0 (0) /HPF Urine WBC 10-14 H (0-4) /HPF Ur Squamous Epith Cells 2+ /LPF Urine Bacteria TRACE /LPF COVID-19 ([facility]) (Negative) COVID-19 Clin Com ECG Data Attestation: I personally reviewed and interpreted this ECG as follows: ECG interpretation date: 09/05/21 ECG interpretation time: 10:37 Interpretation: Rate: 100s Rhythm: afib with PVCs [place]: right Normal P waves. Normal ALE. Normal QRS complex. ST T wave : no BRIA< nonspecific inverted III and avf qTC: normal prior studies: no sig change from 05/2021 The study has been interpreted contemporaneously by me. . Discharge Plan Discharge Clinical Impression: Congestive heart failure Qualifiers: Heart failure type: unspecified Heart failure chronicity: acute on chronic Qualified Code(s): I50.9 - Heart failure, unspecified Patient Disposition: Admitted As Inpatient
[2021-09-05] MEDS: amLODIPine Besylate 2.5 MG TABLET PO (10:37)
[2021-09-05] MEDS: Bumetanide 1 MG/4 ML VIAL IVPUSH (10:56)
--- NOTE | 2021-09-05 11:06 | PHA.MEDREC ---
Pharmacy Consult ? Medication Reconciliation Pharmacy has completed the medication reconciliation. Patient had list of medications that line up with medication claim history. Per the list patient is no longer taking Breo. Maryam Ellis, JamiD
[2021-09-05 11:15] LABS: MANUAL DIFF FLAG NO
[2021-09-05 11:18] LABS: Basophils Percent Auto 0.3 % (0-2); Eosinophils Absolute Auto 0.3 X10*3/uL (0.0-0.4); Eosinophils Percent Auto 3.3 % (0-4); Hematocrit 42.4 % (37.0-47.0); Hemoglobin 12.8 g/dl (12.0-16.0); Imm Gran Abs Auto 0.03 X10*3/uL (0.00-0.03); Imm Gran Pct Auto 0.3 % (0.0-0.4); Lymphocytes Absolute Auto 0.9 X10*3/uL (1.2-4.9); Lymphocytes Percent Auto 9.5 % (20-40); Mean Corpuscular HGB Conc 30.2 g/dl (31.0-35.0); Mean Corpuscular Hemoglobin 30.2 pg (27.0-33.0); Mean Platelet Volume 9.5 fL (9.4-12.3); Monocytes Absolute Auto 0.8 X10*3/uL (0.1-1.2); Monocytes Percent Auto 8.2 % (2-11); Neutrophils Absolute Auto 7.7 x10*3/uL (2.0-8.3); Neutrophils Percent Auto 78.4 % (45-73); Platelet Count 245 X10*3/uL (160-400); Red Blood Count 4.24 X10*6/uL (4.20-5.50); Red Cell Distribution Width 16.4 % (11.0-16.0); White Blood Count 9.8 X10*3/uL (4.8-10.8)
[2021-09-05 11:23] LABS: INTERNATIONAL NORM RATIO 1.7 (0.9-1.1)
[2021-09-05 11:26] LABS: Partial Thromboplastin Time 50.5 SEC (24.1-38.0)
[2021-09-05 11:32] LABS: COVID-19 Test Negative (Negative); IDNOW Serial# 9DD0AD1C
[2021-09-05 11:41] LABS: B Type Natriuretic Peptide 800 pg/mL (<100)
[2021-09-05 11:49] LABS: Troponin-I High Sensitivity 82.5 ng/L (<3.5-17.0)
[2021-09-05 11:50] LABS: Alanine Aminotransferase 15 U/L (0-31); Alkaline Phosphatase 89 U/L (39-117); Anion Gap 14 (12-20); Aspartate Amino Transferase 32 U/L (5-31); Bilirubin Total 1.5 mg/dL (0.0-1.0); Blood Urea Nitrogen 25 mg/dL (9-16); Calcium 10.1 mg/dL (8.4-10.2); Carbon Dioxide 47 mmol/L (22-29); Chloride 83 mmol/L (96-108); Creatinine Clr Calc Pharmacy 42.2; Estimated Glomerular Filt Rate > 60; Glucose Random 108 mg/dL (60-115); Magnesium 1.9 mg/dL (1.6-2.6); Potassium 3.5 mmol/L (3.3-5.1); Sodium 140 mmol/L (135-145); Total Protein 6.9 g/dL (6.5-8.0)
[2021-09-05 11:56] LABS: Appearance Urine CLEAR; Color Urine YELLOW; Glucose Urine UA NEG (NEG); Leukocyte Esterase Urine 1+ (NEG); Nitrite Urine NEG (NEG); PH 6.5 (5.0-8.0); UACC Culture Trigger YES; Urine Blood NEG (NEG); Urine Ketones NEG (NEG); Urine Protein 1+ MG/DL (NEG-TRACE)
[2021-09-05 12:04] LABS: Bacteria Urine TRACE /LPF; RBC Urine 0 /HPF (0); Squamous Epithelial Cell Urine 2+ /LPF
[2021-09-05 12:21] LABS: VBG Base Excess 25.7 mmol/L; VBG HCO3 58 mmol/L (22-26); VBG pCO2 96 mmHg; VBG pH 7.38 (7.32-7.43); VBG pO2 57 mmHg
[2021-09-05 12:23] LABS: Venous Blood Gas Refer to POC result
[2021-09-05] MEDS: methylPREDNISolone Sod Succ 125 MG/2 ML VIAL 60 MG IVPUSH ×2 (13:24→21:45)
--- NOTE | 2021-09-05 13:27 | PC.NURSE ---
pt/daughter anibal aware of plan of care for admission to hosp.
--- NOTE | 2021-09-05 14:49 | PM.IMHP ---
History of Present Illness Date of Service: 09/05/21 Chief Complaint: lower extremity weakness, hypoxia 85F with pmh of chornic diastolic chf, chronic hypoxic respiratory failure on 1L home o2 for copd, brought in for hypoxia. patient has had worsening lower extremity weakness and 10Lbs weight gain over the past few weeks. she recently added on metolazone to her bumex. she was noted to be significantly hypoxic at home, in the 70s, patient herself denies any sob. in ED noted to have some vascular congestion on CXR, vbg showed ph 7.38, pco2 96, bicarb 47. she was given iv bumex and steroids. Review of Systems Review of Systems: Constitutional: Denies fever, denies Chills, 10lbs weight gain Eyes: denies blurry vision ENT: denies sore throat CVS: denies chest pain Respiratory: Denies dyspnea GI: no abdominal pain : denies dysuria MSK: denies neck pain Skin: denies rash Neuro: lower extremity weakness Psych: denies suicidal ideation Endocrine: denies heat/cold intolerance Hematologic: denies easy bleeding Allergy: denies hives [facility] Medical History Afib Aortic aneurysm, abdominal Bladder cancer Chronic diastolic (congestive) heart failure Chronic respiratory failure with hypoxia Congestive heart failure (CHF) COPD (chronic obstructive pulmonary disease) History of DVT (deep vein thrombosis) Peripheral vascular disease TIA (transient ischemic attack) Family History (Updated 09/05/21 @ 15:00 by Steve Harrell MD) Mother CAD (coronary artery disease) Surgical History H/O carotid endarterectomy Social History Alcohol intake: never Patient Tobacco Use Status: Never used Tobacco Use of substances other than those prescribed or required for medical reasons: No Advance Directives: No Advance Directives Information Provided: No Meds Allergies Allergy/AdvReac Type Severity Reaction Status Date / Time cashew nut Allergy Hives Verified 02/22/21 19:38 Latex, Natural Rubber Allergy Hives Verified 02/22/21 19:38 Penicillins [PCN] Allergy Hives Verified 02/22/21 19:38 shellfish derived Allergy Hives Verified 02/22/21 19:38 Sulfa (Sulfonamide Allergy Hives Verified 02/22/21 19:38 Antibiotics) Active Medications: Current Medications Acetazolamide (Acetazolamide Sodium 500 Mg Vial) 250 mg IVPUSH TID [facility] Albuterol/Ipratropium (Albuterol/Iprat 2.5/0.5mg 3 Ml Ampul.Neb) 3 ml INHALE RQ4H PRN PRN Reason: sob Allopurinol (Allopurinol 100 Mg Tablet) 10,000 mg PO DAILY [facility] Amlodipine Besylate (Amlodipine Besylate 2.5 Mg Tablet) 6.25 mg PO DAILY [facility]; Protocol Aspirin (Aspirin 81 Mg Tab.Chew) 81 mg PO DAILY [facility] Brimonidine Tartrate (Brimonidine Tartrate 0.2% Oph 5 Ml Bottle) 1 drop EYE-BOTH BID [facility] Bumetanide (Bumetanide 1 Mg Tablet) 2 mg PO SUTUTHSA@2100 [facility]; Protocol Bumetanide (Bumetanide 1 Mg Tablet) 4 mg PO MOWEFR@2100 [facility]; Protocol Docusate Sodium (Docusate Sodium 100 Mg Capsule) 100 mg PO DAILY [facility] Ezetimibe (Ezetimibe 10 Mg Tablet) 10 mg PO DAILY [facility] Fentanyl (Fentanyl 50 Mcg Patch.Td72) mcg TRANSDERMA Q3D [facility] Gabapentin (Gabapentin 100 Mg Capsule) 200 mg PO BEDTIME [facility] Lactase (Lactase Tablet) tab PO QID PRN PRN Reason: gi upset Latanoprost (Latanoprost 0.005 % Ophth Bernarda 2.5 Ml Drops) 1 drop EYE-BOTH BEDTIME [facility] Methylprednisolone Sodium Succinate (Methylprednisolone Sod Succ 125 Mg/2 Ml Vial) 60 mg IVPUSH Q12H [facility] Multivitamins/Vitamin C (Multivitamin Tablet) 1 tab PO DAILY [facility] Non-Formulary Medication (Vitamins A,C,C-Gtre-Ypcqdb [Preservision Areds]) 1 cap PO BID [facility] Pharmacy Consult (Consult Rx Perform Med Rec) 1 each MISCELLANE ONCE PRN PRN Reason: Consult order Sodium Chloride (0.9 % Sodium Chloride Flush 3 Ml Syringe) 3 ml IVFLUSH QSHIFT [facility] Vitamin D (Cholecalciferol (Vitamin D3) 25 Mcg Tablet) 50 mcg PO DAILY [facility] Warfarin Sodium (Warfarin Sodium 2.5 Mg Tablet) 2.5 mg PO DAILY@1800 [facility] Home Medications Medication Instructions Recorded Confirmed Last Taken Type Bifidobacterium infantis 10.5 mg 10.5 mg PO DAILY 09/05/21 09/05/21 Unknown History (10 million cell) chewable tablet (Align) albuterol sulfate 90 mcg/actuation 2 puff INHALATION Q4H PRN 09/05/21 09/05/21 Unknown History aerosol inhaler allopurinol 100 mg tablet 100 tab PO DAILY 09/05/21 09/05/21 Unknown History amlodipine 2.5 mg tablet 2.5 tab PO DAILY 09/05/21 09/05/21 Unknown History aspirin 81 mg chewable tablet 81 mg PO DAILY 09/05/21 09/05/21 Unknown History brimonidine 0.2 % eye drops 1 drp OPHTHALMIC (EYE) BID 09/05/21 09/05/21 Unknown History bumetanide 2 mg tablet 2 mg PO SUTUTHSA@209909/05/21 09/05/21 Unknown History bumetanide 2 mg tablet 4 mg PO MOWEFR@209909/05/21 09/05/21 Unknown History cholecalciferol (vitamin D3) 50 50 mcg PO DAILY 09/05/21 09/05/21 Unknown History mcg (2,000 unit) tablet (Vitamin D3) docusate sodium 100 mg capsule 100 mg PO DAILY 09/05/21 09/05/21 Unknown History (Colace) ezetimibe 10 mg tablet 10 mg PO DAILY 09/05/21 09/05/21 Unknown History fentanyl 50 mcg/hr transdermal 1 patch TOPICAL Q3D 09/05/21 09/05/21 Unknown History patch gabapentin 100 mg capsule 200 mg PO BEDTIME 09/05/21 09/05/21 Unknown History inulin 2 gram chewable tablet 8 g PO DAILY 09/05/21 09/05/21 Unknown History (Fiber Gummies) lactase 3,000 unit tablet (Lactaid) 3,000 unit PO QID PRN 09/05/21 09/05/21 Unknown History latanoprost 0.005 % eye drops 1 drp OPHTHALMIC (EYE) BEDTIME 09/05/21 09/05/21 Unknown History metolazone 5 mg tablet 5 mg PO SA@0900 09/05/21 09/05/21 Unknown History multivitamin 1 tab PO DAILY 09/05/21 09/05/21 Unknown History red yeast rice 600 mg tablet 600 mg PO DAILY 09/05/21 09/05/21 Unknown History umeclidinium 62.5 mcg/actuation 1 puff INHALATION DAILY 09/05/21 09/05/21 Unknown History blister powder for inhalation (Incruse Ellipta) vitamins A,C,R-lbvb-wjnxrv 14,320 1 cap PO BID 09/05/21 09/05/21 Unknown History unit-226 mg-200 unit capsule (PreserVision AREDS) warfarin 2.5 mg tablet 2.5 mg PO DAILY@1800 09/05/21 09/05/21 Unknown History Physical Exam Vital Signs and Narrative: Vital Signs: Last Vital Signs Temp 98.2 F 09/05/21 09:38 Pulse 91 09/05/21 13:23 Resp 18 09/05/21 13:23 BP 185/73 H 09/05/21 13:23 Pulse Ox 100 09/05/21 13:23 Oxygen Flow Rate 1 09/05/21 09:38 BMI result Body Mass Index 25.4 General: no acute distress, frail HEENT: right eye subconjunctival hemorrhage Neck: normal to visual inspection CVS: S1, S2, irregular, murmur Resp: diminished, exp wheeze Chest: non tender GI: soft, non tender, non distended : no CVA tenderness Skin: no rashes Extremities: no edema Neuro: Oriented X3, grossly intact Psych: cooperative Results Labs CBC and Chem 7: 09/05/21 11:12 09/05/21 11:10 Labs: Laboratory Results - last 24 hr 09/05/21 09/05/21 09/05/21 11:10 11:10 11:10 MCV MCH MCHC RDW Plt Count MPV Immature Gran % (Auto) Neut % (Auto) Lymph % (Auto) [place] % (Auto) Eos % (Auto) Baso % (Auto) Lymph # (Auto) [place] # (Auto) Eos # (Auto) Baso # (Auto) Abs Immat Gran (auto) Absolute Neuts (auto) Absolute Nucleated RBC Nucleated RBC % (auto) PT 20.0 H INR 1.7 H APTT 50.5 H VBG pH VBG pCO2 VBG pO2 VBG HCO3 VBG O2 Saturation VBG Base Excess Anion Gap 14 Estim Creat Clear Calc 42.2 Estimated GFR > 60 Random Glucose 108 Calcium 10.1 Magnesium 1.9 Total Bilirubin 1.5 H Direct Bilirubin 1.0 H AST 32 H ALT 15 Alkaline Phosphatase 89 D Troponin I High Sens B-Natriuretic Peptide Total Protein 6.9 Albumin 4.0 Urine Color Urine Appearance Urine pH Ur Specific [place] Urine Protein Urine Glucose (UA) Urine Ketones Urine Blood Urine Nitrite Ur Leukocyte Esterase Urine RBC Urine WBC Ur Squamous Epith Cells Urine Bacteria COVID-19 ([facility]) Negative COVID-19 Clin Com See Note 09/05/21 09/05/21 09/05/21 11:10 11:12 11:12 MCV 100.0 H MCH 30.2 MCHC 30.2 L RDW 16.4 H Plt Count 245 MPV 9.5 Immature Gran % (Auto) 0.3 Neut % (Auto) 78.4 H Lymph % (Auto) 9.5 L [place] % (Auto) 8.2 Eos % (Auto) 3.3 Baso % (Auto) 0.3 Lymph # (Auto) 0.9 L [place] # (Auto) 0.8 Eos # (Auto) 0.3 Baso # (Auto) 0.0 Abs Immat Gran (auto) 0.03 Absolute Neuts (auto) 7.7 Absolute Nucleated RBC 0.000 Nucleated RBC % (auto) 0.0 PT INR APTT VBG pH VBG pCO2 VBG pO2 VBG HCO3 VBG O2 Saturation VBG Base Excess Anion Gap Estim Creat Clear Calc Estimated GFR Random Glucose Calcium Magnesium Total Bilirubin Direct Bilirubin AST ALT Alkaline Phosphatase Troponin I High Sens 82.5 H* B-Natriuretic Peptide 800 H Total Protein Albumin Urine Color Urine Appearance Urine pH Ur Specific [place] Urine Protein Urine Glucose (UA) Urine Ketones Urine Blood Urine Nitrite Ur Leukocyte Esterase Urine RBC Urine WBC Ur Squamous Epith Cells Urine Bacteria COVID-19 ([facility]) COVID-19 Clin Com 09/05/21 09/05/21 11:43 12:15 MCV MCH MCHC RDW Plt Count MPV Immature Gran % (Auto) Neut % (Auto) Lymph % (Auto) [place] % (Auto) Eos % (Auto) Baso % (Auto) Lymph # (Auto) [place] # (Auto) Eos # (Auto) Baso # (Auto) Abs Immat Gran (auto) Absolute Neuts (auto) Absolute Nucleated RBC Nucleated RBC % (auto) PT INR APTT VBG pH 7.38 VBG pCO2 96 VBG pO2 57 VBG HCO3 58 H VBG O2 Saturation 80.0 VBG Base Excess 25.7 Anion Gap Estim Creat Clear Calc Estimated GFR Random Glucose Calcium Magnesium Total Bilirubin Direct Bilirubin AST ALT Alkaline Phosphatase Troponin I High Sens B-Natriuretic Peptide Total Protein Albumin Urine Color YELLOW Urine Appearance CLEAR Urine pH 6.5 Ur Specific [place] 1.010 Urine Protein 1+ H Urine Glucose (UA) NEG Urine Ketones NEG Urine Blood NEG Urine Nitrite NEG Ur Leukocyte Esterase 1+ H Urine RBC 0 Urine WBC 10-14 H Ur Squamous Epith Cells 2+ Urine Bacteria TRACE COVID-19 ([facility]) COVID-19 Clin Com Imaging Radiologist's Impressions: Impressions Head CT 09/05/21 10:21 IMPRESSION: No acute findings. No change from May 2021 exam. Chest X-Ray 09/05/21 10:24 IMPRESSION: Cardiomegaly without airspace edema. There does appear to be some pulmonary vascular congestion with some interstitial prominence which may be related to early interstitial edema. Bilateral lower lobe disease with probable pleural effusions. Assessment and Plan (1) Acute and chronic respiratory failure with hypoxia: Status: Acute (2) Acute on chronic diastolic CHF (congestive heart failure): Status: Acute (3) COPD (chronic obstructive pulmonary disease): Status: Acute 85F presented withhypoxia and le weakness acute on chronic hypoxic respiratory failure due to acute on chronic diastolic chf with moderate AI and moderate MS and COPD with eacerbation bumex infusion diamox 250mg tid monitor labs closely pulm eval chronic atrial fibrillation will add diltiazem 30mg qid coumadin - goal inr 2-3 monitor history of DVT coumadin weakness PT eval DNR/DNI Quality Stroke Does the patient have a stroke diagnosis?: No VTE Prior VTE?: Yes VTE Risk Level:: Medical - moderate - high VTE Device Contraindication: Treatment Not Indicated VTE Drug Contraindication: N/A - Med Ordered
--- NOTE | 2021-09-05 15:08 | PM.CNPUL ---
History of Present Illness History of Present Illness Consult date: 09/05/21 Requesting physician: Steve Harrell Chief complaint: COPD CHF Narrative: 85-year-old lady, former 40+ pack-year smoker, quit 6 years prior with underlying history of COPD and congestive heart failure, previously seen at [facility] pulmonary Department comment treated with albuterol MDI and Incruse been admitted to general medical hoang for slowly worsening lower extremity edema, 10 lb weight gain, unsteadiness, and wheezing. Her ER workup is remarkable for significantly evaluated serum bicarbonate, elevated BNP, chest x-ray with pulmonary congestion. Patient denies over dyspnea, Cough, sputum production, but does admit to persistent wheezing. Review of Systems Constitutional: Constitutional: Denies daytime sleepiness, Denies excessive sweating, Denies fatigue, Denies fever(s), Denies lethargy, Denies malaise, Denies night sweats, Denies snoring and Denies weight loss Eyes: Eyes: Reports blurry vision and Denies itchy eyes ENT: Denies nasal congestion, Denies post nasal drip, Denies sinus pain, Denies sinus pressure and Denies other ( Thrush) Cardiovascular: Cardiovascular: Denies chest pain, Reports pedal edema, Denies dyspnea, Denies orthopnea and Denies paroxysmal nocturnal dyspnea Respiratory: Respiratory: Denies cough, Denies hemoptysis, Denies excessive phlegm production, Denies dyspnea, Denies snoring and Reports wheezing Gastrointestinal: Gastrointestinal: Denies abdominal pain and Denies heartburn Musculoskeletal: Musculoskeletal: Denies myalgias, Denies arthralgias and Denies joint swelling Integumentary/Breasts: Skin/Breast: Denies rash Neurologic: Denies memory loss and Denies seizure-like activity Psychiatric: Psychiatric: Denies abnormal sleep pattern, Denies anxiety and Denies memory loss Endocrine: Endocrine: Denies excessive sweating, Denies fatigue and Denies heat intolerance Hematologic/Lymphatic: Hematologic/Lymphatic: Reports easy bruising Allergic/Immunologic: Allergic/Immunologic: Denies itchy eyes, Denies seasonal rhinorrhea and Reports wheezing PMFSH Past Medical History Medical History Afib Aortic aneurysm, abdominal Bladder cancer Chronic diastolic (congestive) heart failure Chronic respiratory failure with hypoxia Congestive heart failure (CHF) COPD (chronic obstructive pulmonary disease) History of DVT (deep vein thrombosis) Peripheral vascular disease TIA (transient ischemic attack) Family History Family History (Updated 09/05/21 @ 15:00 by Steve Harrell MD) Mother CAD (coronary artery disease) Surgical History Surgical History H/O carotid endarterectomy Social History Social History Alcohol intake: never Patient Tobacco Use Status: Never used Tobacco Use of substances other than those prescribed or required for medical reasons: No Advance Directives: No Advance Directives Information Provided: No Meds Allergies Allergy/AdvReac Type Severity Reaction Status Date / Time cashew nut Allergy Hives Verified 02/22/21 19:38 Latex, Natural Rubber Allergy Hives Verified 02/22/21 19:38 Penicillins [PCN] Allergy Hives Verified 02/22/21 19:38 shellfish derived Allergy Hives Verified 02/22/21 19:38 Sulfa (Sulfonamide Allergy Hives Verified 02/22/21 19:38 Antibiotics) Active Medications: Current Medications Acetazolamide (Acetazolamide Sodium 500 Mg Vial) 250 mg IVPUSH TID [facility] Albuterol/Ipratropium (Albuterol/Iprat 2.5/0.5mg 3 Ml Ampul.Neb) 3 ml INHALE RQ4H PRN PRN Reason: sob Allopurinol (Allopurinol 100 Mg Tablet) 100 mg PO DAILY [facility] Amlodipine Besylate (Amlodipine Besylate 2.5 Mg Tablet) 2.5 mg PO DAILY [facility]; Protocol Aspirin (Aspirin 81 Mg Tab.Chew) 81 mg PO DAILY [facility] Brimonidine Tartrate (Brimonidine Tartrate 0.2% Oph 5 Ml Bottle) 1 drop EYE-BOTH BID [facility] Diltiazem HCl (Diltiazem Hcl 30 Mg Tablet) 30 mg PO QID [facility]; Protocol Docusate Sodium (Docusate Sodium 100 Mg Capsule) 100 mg PO DAILY [facility] Ezetimibe (Ezetimibe 10 Mg Tablet) 10 mg PO DAILY [facility] Fentanyl (Fentanyl 50 Mcg Patch.Td72) mcg TRANSDERMA Q3D [facility] Gabapentin (Gabapentin 100 Mg Capsule) 200 mg PO BEDTIME [facility] Bumetanide 25 mg/ IV (Miscellaneous Supplies) 100 mls @ 4 mls/hr IVCONT .Q24H [facility] Lactase (Lactase Tablet) 1 tab PO QID PRN PRN Reason: gi upset Latanoprost (Latanoprost 0.005 % Ophth Bernarda 2.5 Ml Drops) 1 drop EYE-BOTH BEDTIME [facility] Methylprednisolone Sodium Succinate (Methylprednisolone Sod Succ 125 Mg/2 Ml Vial) 60 mg IVPUSH Q12H [facility] Multivitamins/Vitamin C (Multivitamin Tablet) 1 tab PO DAILY [facility] Pharmacy Consult (Consult Rx Perform Med Rec) 1 each MISCELLANE ONCE PRN PRN Reason: Consult order Potassium Chloride (Potassium Chloride Er 20 Meq Tab.Er.Prt) 40 meq PO ONCE ONE Stop: 09/05/21 15:06 Sodium Chloride (0.9 % Sodium Chloride Flush 3 Ml Syringe) 3 ml IVFLUSH QSHIFT [facility] Vitamin D (Cholecalciferol (Vitamin D3) 25 Mcg Tablet) 50 mcg PO DAILY [facility] Warfarin Sodium (Warfarin Sodium 2.5 Mg Tablet) 2.5 mg PO DAILY@1800 [facility] Home Medications Medication Instructions Recorded Confirmed Last Taken Type Bifidobacterium infantis 10.5 mg 10.5 mg PO DAILY 09/05/21 09/05/21 Unknown History (10 million cell) chewable tablet (Align) albuterol sulfate 90 mcg/actuation 2 puff INHALATION Q4H PRN 09/05/21 09/05/21 Unknown History aerosol inhaler allopurinol 100 mg tablet 100 tab PO DAILY 09/05/21 09/05/21 Unknown History amlodipine 2.5 mg tablet 2.5 mg PO DAILY 09/05/21 09/05/21 Unknown History aspirin 81 mg chewable tablet 81 mg PO DAILY 09/05/21 09/05/21 Unknown History brimonidine 0.2 % eye drops 1 drp OPHTHALMIC (EYE) BID 09/05/21 09/05/21 Unknown History bumetanide 2 mg tablet 2 mg PO SUTUTHSA@209909/05/21 09/05/21 Unknown History bumetanide 2 mg tablet 4 mg PO MOWEFR@209909/05/21 09/05/21 Unknown History cholecalciferol (vitamin D3) 50 50 mcg PO DAILY 09/05/21 09/05/21 Unknown History mcg (2,000 unit) tablet (Vitamin D3) docusate sodium 100 mg capsule 100 mg PO DAILY 09/05/21 09/05/21 Unknown History (Colace) ezetimibe 10 mg tablet 10 mg PO DAILY 09/05/21 09/05/21 Unknown History fentanyl 50 mcg/hr transdermal 1 patch TOPICAL Q3D 09/05/21 09/05/21 Unknown History patch gabapentin 100 mg capsule 200 mg PO BEDTIME 09/05/21 09/05/21 Unknown History inulin 2 gram chewable tablet 8 g PO DAILY 09/05/21 09/05/21 Unknown History (Fiber Gummies) lactase 3,000 unit tablet (Lactaid) 3,000 unit PO QID PRN 09/05/21 09/05/21 Unknown History latanoprost 0.005 % eye drops 1 drp OPHTHALMIC (EYE) BEDTIME 09/05/21 09/05/21 Unknown History metolazone 5 mg tablet 5 mg PO SA@0900 09/05/21 09/05/21 Unknown History multivitamin 1 tab PO DAILY 09/05/21 09/05/21 Unknown History red yeast rice 600 mg tablet 600 mg PO DAILY 09/05/21 09/05/21 Unknown History umeclidinium 62.5 mcg/actuation 1 puff INHALATION DAILY 09/05/21 09/05/21 Unknown History blister powder for inhalation (Incruse Ellipta) vitamins A,C,T-ceqb-htfzip 14,320 1 cap PO BID 09/05/21 09/05/21 Unknown History unit-226 mg-200 unit capsule (PreserVision AREDS) warfarin 2.5 mg tablet 2.5 mg PO DAILY@1800 09/05/21 09/05/21 Unknown History Physical Exam Vital Signs: Vital Signs: Last Vital Signs Temp 98.2 F 09/05/21 09:38 Pulse 91 09/05/21 13:23 Resp 18 09/05/21 13:23 BP 185/73 H 09/05/21 13:23 Pulse Ox 100 09/05/21 13:23 Oxygen Flow Rate 1 09/05/21 09:38 BMI result Body Mass Index 25.4 Const: General: no acute distress, alert and awake Eyes: Sclerae: scleral abnormal ( right-sided hemorrhages) Corneas: corneas abnormal bilateral diffuse opacification EOM: EOMs intact bilaterally Neck: Neck: Yes no lymphadenopathy, Yes trachea midline and Yes supple Resp: Effort & Inspection: normal respiratory effort and no respiratory distress Auscultation: wheezes expiratory wheezes ( bilateral) Cardio: Rate: regular rate Rhythm: regular rhythm Heart sounds: no gallops, no murmurs and no rubs GI: Palpation (GI): Soft to palpation and Other GI palpation findings present ( Nontender) Auscultation: normal bowel sounds Extrem: General: No clubbing, No cyanosis and Yes edema ( 1+ bilateral) Results Laboratory Findings CBC and BMP: 09/05/21 11:12 09/05/21 11:10 ABG, PT/INR, D-dimer: PT/INR, D-dimer PT 20.0 SEC (9.9-13.0) H 09/05/21 11:10 INR 1.7 (0.9-1.1) H 09/05/21 11:10 Abnormal lab findings: Abnormal Labs 09/05/21 09/05/21 09/05/21 11:10 11:10 11:10 MCV MCHC RDW Neut % (Auto) Lymph % (Auto) Lymph # (Auto) PT 20.0 H INR 1.7 H APTT 50.5 H VBG HCO3 Chloride 83 L Carbon Dioxide 47 H* D BUN 25 H Total Bilirubin 1.5 H Direct Bilirubin 1.0 H AST 32 H Troponin I High Sens 82.5 H* B-Natriuretic Peptide Urine Protein Ur Leukocyte Esterase Urine WBC 09/05/21 09/05/21 09/05/21 11:12 11:12 11:43 MCV 100.0 H MCHC 30.2 L RDW 16.4 H Neut % (Auto) 78.4 H Lymph % (Auto) 9.5 L Lymph # (Auto) 0.9 L PT INR APTT VBG HCO3 Chloride Carbon Dioxide BUN Total Bilirubin Direct Bilirubin AST Troponin I High Sens B-Natriuretic Peptide 800 H Urine Protein 1+ H Ur Leukocyte Esterase 1+ H Urine WBC 10-14 H 09/05/21 12:15 MCV MCHC RDW Neut % (Auto) Lymph % (Auto) Lymph # (Auto) PT INR APTT VBG HCO3 58 H Chloride Carbon Dioxide BUN Total Bilirubin Direct Bilirubin AST Troponin I High Sens B-Natriuretic Peptide Urine Protein Ur Leukocyte Esterase Urine WBC Assessment and Plan (1) COPD (chronic obstructive pulmonary disease): Status: Acute (2) CO2 retention: Status: Acute Impression: 85-year-old lady with underlying advanced supplemental oxygen dependent COPD with chronic CO2 retention and also underlying unclear congestive heart failure admitted with exacerbation of congestive heart failure and COPD. Recommendation: Agree with systemic glucocorticoids and nebulized bronchodilators for treatment of underlying COPD exacerbation with significant wheezing. Agree with aggressive diuresis with Bumex drip and IV acetazolamide. Procedures Date of Service Date of Service: 09/05/21
[2021-09-05] MEDS: acetaZOLAMIDE sodium 500 MG VIAL 250 MG IVPUSH ×2 (16:11→23:17)
[2021-09-05] MEDS: Bumetanide 25 MG in Container,Empty 0 ML 4 MG IVCONT (16:11)
[2021-09-05] MEDS: Potassium Chloride ER 20 MEQ TAB.ER.PRT 40 MEQ PO (16:11)
[2021-09-05] MEDS: 0.9 % Sodium Chloride Flush 3 ML SYRINGE IVFLUSH ×2 (16:12→23:18)
[2021-09-05] MEDS: fentaNYL 50 MCG PATCH.TD72 TRANSDERMA (17:47)
[2021-09-05] MEDS: dilTIAZem HCL 30 MG TABLET PO ×2 (17:47→23:17)
--- NOTE | 2021-09-05 17:53 | PC.NURSE ---
This RN witnessed old Fentanyl 50mcg waste with Lauren MARION
--- NOTE | 2021-09-05 18:08 | PC.NURSE ---
PATIENT WAS ASSISTED TO BEDSIDE COMMODE BY THIS PCT .
[2021-09-05] MEDS: Warfarin Sodium 2.5 MG TABLET PO (19:30)
--- NOTE | 2021-09-05 20:33 | MHC.CM.PN ---
CM met with admitted patient and her daughter, pending transfer to room 358. A&Ox3. IMM reviewed and signed per protocol 09/05/2021@2024. Copy to patient and medical records. No HCP on file. Copy requested. HCP/daughter Ankit Wright ([phone]). MOLST on file. Pt resident of [facility] [address], independent living. Pt is provided dinner. Daughter states her mother is independent and usually manages quite well in her apartment. Pt uses a walker and home oxygen @1L. Has no other services. D/C plan is to return to her independent living at [facility]. May need transportation home. CM to follow for d/c needs.
--- NOTE | 2021-09-05 21:37 | PC.NURSE ---
Pt self-administered Rx eye drops, noted on MAR
[2021-09-05] MEDS: Gabapentin 100 MG CAPSULE 200 MG PO (21:44)
--- NOTE | 2021-09-05 22:17 | PC.NURSE ---
Report called to inpatient RN. Pt transported to floor via Sae[facility] EDT, attached to classroom monitor, sent in stable condition w/ all belongings. Bumex gtt infusing
[2021-09-06] VITALS (12 sets, daily range): BP systolic 108–168; BP diastolic 57–74; PULSE 66–92; RESP 16–19; TEMP 36.5–37.1; O2SAT 86–97
[2021-09-06 06:24] LABS: Hematocrit 42.6 % (37.0-47.0); Mean Corpuscular HGB Conc 30.5 g/dl (31.0-35.0); Mean Corpuscular Hemoglobin 30.7 pg (27.0-33.0); Mean Corpuscular Volume 100.5 fL (80.0-98.0); Mean Platelet Volume 10.2 fL (9.4-12.3); Platelet Count 283 X10*3/uL (160-400); Red Blood Count 4.24 X10*6/uL (4.20-5.50); Red Cell Distribution Width 16.2 % (11.0-16.0); White Blood Count 7.2 X10*3/uL (4.8-10.8)
[2021-09-06 06:58] LABS: INTERNATIONAL NORM RATIO 1.7 (0.9-1.1); Prothrombin Time 19.9 SEC (9.9-13.0)
[2021-09-06 07:20] LABS: Anion Gap 17 (12-20); Blood Urea Nitrogen 30 mg/dL (9-16); Calcium 10.4 mg/dL (8.4-10.2); Carbon Dioxide 43 mmol/L (22-29); Chloride 85 mmol/L (96-108); Creatinine Clr Calc Pharmacy 34.5; Estimated Glomerular Filt Rate 54; Glucose Fasting 203 mg/dL (60-99); Magnesium 1.7 mg/dL (1.6-2.6); Potassium 3.9 mmol/L (3.3-5.1); Sodium 141 mmol/L (135-145)
[2021-09-06] MEDS: dilTIAZem HCL 30 MG TABLET PO ×4 (08:58→21:10)
[2021-09-06] MEDS: acetaZOLAMIDE sodium 500 MG VIAL 250 MG IVPUSH ×3 (08:58→21:10)
[2021-09-06] MEDS: Docusate Sodium 100 MG CAPSULE PO (08:58)
[2021-09-06] MEDS: Multivitamin TABLET 1 TAB PO (08:58)
[2021-09-06] MEDS: Ezetimibe 10 MG TABLET PO (08:58)
[2021-09-06] MEDS: methylPREDNISolone Sod Succ 125 MG/2 ML VIAL 60 MG IVPUSH ×2 (08:58→21:09)
[2021-09-06] MEDS: amLODIPine Besylate 2.5 MG TABLET PO (08:58)
[2021-09-06] MEDS: Cholecalciferol (Vitamin D3) 25 MCG TABLET 50 MCG PO (08:58)
[2021-09-06] MEDS: Aspirin 81 MG TAB.CHEW PO (08:58)
[2021-09-06] MEDS: allopurinoL 100 MG TABLET PO (08:58)
[2021-09-06] MEDS: 0.9 % Sodium Chloride Flush 3 ML SYRINGE IVFLUSH ×2 (08:59→21:10)
--- NOTE | 2021-09-06 09:58 | HO.PM.IMPN ---
Subjective Subjective Date of Service: 09/06/21 Interval History: cc: sob, weakness interval history: unchanged Cardiovascular Cardiovascular: Reports no additional cardiovascular complaints Gastrointestinal Gastrointestinal: Reports no additional gastrointestinal complaints Physical Exam Vital Signs: Vital Signs: Last Vital Signs Temp 98.4 F 09/06/21 07:46 Pulse 92 09/06/21 07:46 Resp 18 09/06/21 07:46 BP 168/74 H 09/06/21 07:46 Pulse Ox 93 09/06/21 07:46 Oxygen Flow Rate 1 09/05/21 09:38 BMI result Body Mass Index 25.4 General: AO X 3, no acute distress Resp: diminished with wheezes bilateral, no accessory muscles used CVS: S1,S2,irregular GI: soft, non tender, non distended Neuro: choreaform movements on exertion, alert Psych: appropriate affect, appropriate insight Objective Data Active Medications Acetazolamide (Acetazolamide Sodium 500 Mg Vial) 250 mg IVPUSH TID [facility] Last Admin: 09/06/21 08:58 Dose: 250 mg Documented by: FERMIN Albuterol/Ipratropium (Albuterol/Iprat 2.5/0.5mg 3 Ml Ampul.Neb) 3 ml INHALE RQ4H PRN PRN Reason: sob Allopurinol (Allopurinol 100 Mg Tablet) 100 mg PO DAILY [facility] Last Admin: 09/06/21 08:58 Dose: 100 mg Documented by: FERMIN Amlodipine Besylate (Amlodipine Besylate 2.5 Mg Tablet) 2.5 mg PO DAILY [facility]; Protocol Last Admin: 09/06/21 08:58 Dose: 2.5 mg Documented by: FERMIN Aspirin (Aspirin 81 Mg Tab.Chew) 81 mg PO DAILY [facility] Last Admin: 09/06/21 08:58 Dose: 81 mg Documented by: FERMIN Brimonidine Tartrate (Brimonidine Tartrate 0.2% Oph 5 Ml Bottle) 1 drop EYE-BOTH BID [facility] Last Admin: 09/05/21 21:37 Dose: Not Given Documented by: YURIDIA Non-Admin Reason: See Note Diltiazem HCl (Diltiazem Hcl 30 Mg Tablet) 30 mg PO QID [facility]; Protocol Last Admin: 09/06/21 08:58 Dose: 30 mg Documented by: FERMIN Docusate Sodium (Docusate Sodium 100 Mg Capsule) 100 mg PO DAILY [facility] Last Admin: 09/06/21 08:58 Dose: 100 mg Documented by: FERMIN Ezetimibe (Ezetimibe 10 Mg Tablet) 10 mg PO DAILY [facility] Last Admin: 09/06/21 08:58 Dose: 10 mg Documented by: FERMIN Fentanyl (Fentanyl 50 Mcg Patch.Td72) 50 mcg TRANSDERMA Q3D [facility] Last Admin: 09/05/21 17:47 Dose: 50 mcg Documented by: ANJELICA Gabapentin (Gabapentin 100 Mg Capsule) 200 mg PO BEDTIME [facility] Last Admin: 09/05/21 21:44 Dose: 200 mg Documented by: YURIDIA Bumetanide 25 mg/ IV (Miscellaneous Supplies) 100 mls @ 4 mls/hr IVCONT .Q24H [facility] Last Admin: 09/05/21 16:11 Dose: 1 mg/hr, 4 mls/hr Documented by: ANJELICA Lactase (Lactase Tablet) 1 tab PO QID PRN PRN Reason: gi upset Latanoprost (Latanoprost 0.005 % Ophth [place] 2.5 Ml Drops) 1 drop EYE-BOTH BEDTIME [facility] Last Admin: 09/05/21 21:37 Dose: Not Given Documented by: YURIDIA Non-Admin Reason: See Note Methylprednisolone Sodium Succinate (Methylprednisolone Sod Succ 125 Mg/2 Ml Vial) 60 mg IVPUSH Q12H [facility] Last Admin: 09/06/21 08:58 Dose: 60 mg Documented by: FERMIN Multivitamins/Vitamin C (Multivitamin Tablet) 1 tab PO DAILY [facility] Last Admin: 09/06/21 08:58 Dose: 1 tab Documented by: FERMIN Pharmacy Consult (Consult Rx Perform Med Rec) 1 each MISCELLANE ONCE PRN PRN Reason: Consult order Sodium Chloride (0.9 % Sodium Chloride Flush 3 Ml Syringe) 3 ml IVFLUSH QSHIFT [facility] Last Admin: 09/06/21 08:59 Dose: 3 ml Documented by: FERMIN Vitamin D (Cholecalciferol (Vitamin D3) 25 Mcg Tablet) 50 mcg PO DAILY [facility] Last Admin: 09/06/21 08:58 Dose: 50 mcg Documented by: FERMIN Warfarin Sodium (Warfarin Sodium 2.5 Mg Tablet) 2.5 mg PO DAILY@1800 [facility] Last Admin: 09/05/21 19:30 Dose: 2.5 mg Documented by: YURIDIA Labs CBC & Chem 7: 09/06/21 05:49 09/06/21 05:49 Labs: Laboratory Results - last 24 hr 09/05/21 09/05/21 09/05/21 11:10 11:10 11:10 MCV MCH MCHC RDW Plt Count MPV Immature Gran % (Auto) Neut % (Auto) Lymph % (Auto) [place] % (Auto) Eos % (Auto) Baso % (Auto) Lymph # (Auto) [place] # (Auto) Eos # (Auto) Baso # (Auto) Abs Immat Gran (auto) Absolute Neuts (auto) Absolute Nucleated RBC Nucleated RBC % (auto) PT 20.0 H INR 1.7 H APTT 50.5 H VBG pH VBG pCO2 VBG pO2 VBG HCO3 VBG O2 Saturation VBG Base Excess Anion Gap 14 Estim Creat Clear Calc 42.2 Estimated GFR > 60 Random Glucose 108 Fasting Glucose Calcium 10.1 Magnesium 1.9 Total Bilirubin 1.5 H Direct Bilirubin 1.0 H AST 32 H ALT 15 Alkaline Phosphatase 89 D Troponin I High Sens B-Natriuretic Peptide Total Protein 6.9 Albumin 4.0 Urine Color Urine Appearance Urine pH Ur Specific [place] Urine Protein Urine Glucose (UA) Urine Ketones Urine Blood Urine Nitrite Ur Leukocyte Esterase Urine RBC Urine WBC Ur Squamous Epith Cells Urine Bacteria COVID-19 ([facility]) Negative COVID-19 Clin Com See Note 09/05/21 09/05/21 09/05/21 11:10 11:12 11:12 MCV 100.0 H MCH 30.2 MCHC 30.2 L RDW 16.4 H Plt Count 245 MPV 9.5 Immature Gran % (Auto) 0.3 Neut % (Auto) 78.4 H Lymph % (Auto) 9.5 L [place] % (Auto) 8.2 Eos % (Auto) 3.3 Baso % (Auto) 0.3 Lymph # (Auto) 0.9 L [place] # (Auto) 0.8 Eos # (Auto) 0.3 Baso # (Auto) 0.0 Abs Immat Gran (auto) 0.03 Absolute Neuts (auto) 7.7 Absolute Nucleated RBC 0.000 Nucleated RBC % (auto) 0.0 PT INR APTT VBG pH VBG pCO2 VBG pO2 VBG HCO3 VBG O2 Saturation VBG Base Excess Anion Gap Estim Creat Clear Calc Estimated GFR Random Glucose Fasting Glucose Calcium Magnesium Total Bilirubin Direct Bilirubin AST ALT Alkaline Phosphatase Troponin I High Sens 82.5 H* B-Natriuretic Peptide 800 H Total Protein Albumin Urine Color Urine Appearance Urine pH Ur Specific [place] Urine Protein Urine Glucose (UA) Urine Ketones Urine Blood Urine Nitrite Ur Leukocyte Esterase Urine RBC Urine WBC Ur Squamous Epith Cells Urine Bacteria COVID-19 ([facility]) COVID-19 Clin Com 09/05/21 09/05/21 09/06/21 11:43 12:15 05:49 MCV MCH MCHC RDW Plt Count MPV Immature Gran % (Auto) Neut % (Auto) Lymph % (Auto) [place] % (Auto) Eos % (Auto) Baso % (Auto) Lymph # (Auto) [place] # (Auto) Eos # (Auto) Baso # (Auto) Abs Immat Gran (auto) Absolute Neuts (auto) Absolute Nucleated RBC Nucleated RBC % (auto) PT 19.9 H INR 1.7 H APTT VBG pH 7.38 VBG pCO2 96 VBG pO2 57 VBG HCO3 58 H VBG O2 Saturation 80.0 VBG Base Excess 25.7 Anion Gap Estim Creat Clear Calc Estimated GFR Random Glucose Fasting Glucose Calcium Magnesium Total Bilirubin Direct Bilirubin AST ALT Alkaline Phosphatase Troponin I High Sens B-Natriuretic Peptide Total Protein Albumin Urine Color YELLOW Urine Appearance CLEAR Urine pH 6.5 Ur Specific [place] 1.010 Urine Protein 1+ H Urine Glucose (UA) NEG Urine Ketones NEG Urine Blood NEG Urine Nitrite NEG Ur Leukocyte Esterase 1+ H Urine RBC 0 Urine WBC 10-14 H Ur Squamous Epith Cells 2+ Urine Bacteria TRACE COVID-19 ([facility]) COVID-19 [employer] Com 09/06/21 09/06/21 05:49 05:49 MCV 100.5 H MCH 30.7 MCHC 30.5 L RDW 16.2 H Plt Count 283 MPV 10.2 Immature Gran % (Auto) Neut % (Auto) Lymph % (Auto) [place] % (Auto) Eos % (Auto) Baso % (Auto) Lymph # (Auto) [place] # (Auto) Eos # (Auto) Baso # (Auto) Abs Immat Gran (auto) Absolute Neuts (auto) Absolute Nucleated RBC 0.000 Nucleated RBC % (auto) 0.0 PT INR APTT VBG pH VBG pCO2 VBG pO2 VBG HCO3 VBG O2 Saturation VBG Base Excess Anion Gap 17 Estim Creat Clear Calc 34.5 Estimated GFR 54 Random Glucose Fasting Glucose 203 H Calcium 10.4 H Magnesium 1.7 Total Bilirubin Direct Bilirubin AST ALT Alkaline Phosphatase Troponin I High Sens B-Natriuretic Peptide Total Protein Albumin Urine Color Urine Appearance Urine pH Ur Specific [place] Urine Protein Urine Glucose (UA) Urine Ketones Urine Blood Urine Nitrite Ur Leukocyte Esterase Urine RBC Urine WBC Ur Squamous Epith Cells Urine Bacteria COVID-19 ([facility]) COVID-19 Clin Com Microbiology Microbiology Results: Microbiology 09/05/21 Unknown Urine Culture - Final Urine clean catch - Urine kn[place] top Assessment and Plan (1) CO2 retention: Status: Acute Assessment and Plan: 85F presented withhypoxia and le weakness acute on chronic hypoxic respiratory failure due to acute on chronic diastolic chf with moderate AI and moderate MS and COPD with eacerbation still sob bumex infusion diamox 250mg tid monitor labs closely pulm appreciated chronic atrial fibrillation continue diltiazem 30mg qid coumadin - goal inr 2-3 monitor history of DVT coumadin macrocytosis will check b12, tsh, folate jerking movements on exertion if still persistent after correction of electrolytes will consider neuro eval Quality Stroke Does the patient have a stroke diagnosis?: No VTE Prior VTE?: Yes VTE Risk Level:: Medical - moderate - high VTE Device Contraindication: Treatment Not Indicated VTE Drug Contraindication: N/A - Med Ordered
[2021-09-06 11:20] LABS: Folate > 20.0 ng/mL (> or = 4.0); Vitamin B12 1433 pg/mL (200-900)
[2021-09-06 11:37] LABS: TSH reflex Free T4 0.28 uIU/mL (0.32-4.0)
[2021-09-06] MEDS: Brimonidine Tartrate 0.2% Oph 5 ML BOTTLE 1 DROP EYE-BOTH ×2 (12:06→21:10)
[2021-09-06 12:39] LABS: Free T4 (Free Thyroxine) 1.11 ng/dL (0.71-1.85)
[2021-09-06] MEDS: Bumetanide 25 MG in Container,Empty 0 ML 4 MG IVCONT (14:21)
[2021-09-06] MEDS: Warfarin Sodium 2.5 MG TABLET PO (17:14)
[2021-09-06] MEDS: Latanoprost 0.005 % Ophth Sol 2.5 ML DROPS 1 DROP EYE-BOTH (21:10)
[2021-09-06] MEDS: Gabapentin 100 MG CAPSULE 200 MG PO (21:10)
[2021-09-07] VITALS (11 sets, daily range): BP systolic 104–154; BP diastolic 54–58; PULSE 66–98; RESP 18–20; TEMP 36–37.1; O2SAT 90–94
[2021-09-07 06:32] LABS: Hematocrit 43.8 % (37.0-47.0); Hemoglobin 13.1 g/dl (12.0-16.0); Mean Corpuscular HGB Conc 29.9 g/dl (31.0-35.0); Mean Corpuscular Hemoglobin 30.2 pg (27.0-33.0); Mean Corpuscular Volume 100.9 fL (80.0-98.0); Mean Platelet Volume 10.1 fL (9.4-12.3); Platelet Count 289 X10*3/uL (160-400); Red Blood Count 4.34 X10*6/uL (4.20-5.50); Red Cell Distribution Width 16.2 % (11.0-16.0); White Blood Count 18.7 X10*3/uL (4.8-10.8)
[2021-09-07 06:50] LABS: B Type Natriuretic Peptide 1045 pg/mL (<100); INTERNATIONAL NORM RATIO 2.8 (0.9-1.1)
[2021-09-07 07:32] LABS: Anion Gap 15 (12-20); Blood Urea Nitrogen 48 mg/dL (9-16); Calcium 10.7 mg/dL (8.4-10.2); Carbon Dioxide 46 mmol/L (22-29); Chloride 88 mmol/L (96-108); Estimated Glomerular Filt Rate 46; Glucose Fasting 163 mg/dL (60-99); Potassium 4.3 mmol/L (3.3-5.1); Sodium 145 mmol/L (135-145)
[2021-09-07] MEDS: amLODIPine Besylate 2.5 MG TABLET PO (08:54)
[2021-09-07] MEDS: Aspirin 81 MG TAB.CHEW PO (08:54)
[2021-09-07] MEDS: Ezetimibe 10 MG TABLET PO (08:54)
[2021-09-07] MEDS: dilTIAZem HCL 30 MG TABLET PO ×4 (08:55→20:35)
[2021-09-07] MEDS: allopurinoL 100 MG TABLET PO (08:55)
[2021-09-07] MEDS: Cholecalciferol (Vitamin D3) 25 MCG TABLET 50 MCG PO (08:55)
[2021-09-07] MEDS: Docusate Sodium 100 MG CAPSULE PO (08:55)
[2021-09-07] MEDS: methylPREDNISolone Sod Succ 125 MG/2 ML VIAL 60 MG IVPUSH ×2 (08:56→20:35)
[2021-09-07] MEDS: acetaZOLAMIDE sodium 500 MG VIAL IVPUSH ×2 (08:56→20:35)
[2021-09-07] MEDS: Brimonidine Tartrate 0.2% Oph 5 ML BOTTLE 1 DROP EYE-BOTH ×2 (09:00→20:35)
--- NOTE | 2021-09-07 09:34 | P.PNIM_ITS ---
Subjective Subjective Date of Service: 09/07/21 Interval History: ?cc: sob, weakness interval history: unchanged Physical Exam Vital Signs: Vital Signs: Last Vital Signs Temp 97.5 F 09/07/21 07:00 Pulse 66 09/07/21 08:55 Resp 18 09/07/21 07:00 BP 154/58 H 09/07/21 08:55 Pulse Ox 94 09/07/21 07:00 Oxygen Flow Rate 1 09/05/21 09:38 BMI result Body Mass Index 25.4 General: AO X 3, no acute distress Resp: diminished with wheezes bilateral, no accessory muscles used CVS: S1,S2,irregular GI: soft, non tender, non distended Neuro:? choreaform movements on exertion, alert Psych: appropriate affect, appropriate insight? Objective Data Active Medications Acetazolamide (Acetazolamide Sodium 500 Mg Vial) 500 mg IVPUSH BID [facility] Last Admin: 09/07/21 08:56 Dose: 500 mg Documented by: OCHOA Albuterol/Ipratropium (Albuterol/Iprat 2.5/0.5mg 3 Ml Ampul.Neb) 3 ml INHALE RQ4H PRN PRN Reason: sob Allopurinol (Allopurinol 100 Mg Tablet) 100 mg PO DAILY [facility] Last Admin: 09/07/21 08:55 Dose: 100 mg Documented by: OCHOA Amlodipine Besylate (Amlodipine Besylate 2.5 Mg Tablet) 2.5 mg PO DAILY [facility]; Protocol Last Admin: 09/07/21 08:54 Dose: 2.5 mg Documented by: OCHOA Aspirin (Aspirin 81 Mg Tab.Chew) 81 mg PO DAILY [facility] Last Admin: 09/07/21 08:54 Dose: 81 mg Documented by: OCHOA Brimonidine Tartrate (Brimonidine Tartrate 0.2% Oph 5 Ml Bottle) 1 drop EYE- BOTH BID [facility] Last Admin: 09/07/21 09:00 Dose: 1 drop Documented by: OCHOA Diltiazem HCl (Diltiazem Hcl 30 Mg Tablet) 30 mg PO QID [facility]; Protocol Last Admin: 09/07/21 08:55 Dose: 30 mg Documented by: OCHOA Docusate Sodium (Docusate Sodium 100 Mg Capsule) 100 mg PO DAILY [facility] Last Admin: 09/07/21 08:55 Dose: 100 mg Documented by: OCHOA Ezetimibe (Ezetimibe 10 Mg Tablet) 10 mg PO DAILY [facility] Last Admin: 09/07/21 08:54 Dose: 10 mg Documented by: OCHOA Fentanyl (Fentanyl 50 Mcg Patch.Td72) 50 mcg TRANSDERMA Q3D [facility] Last Admin: 09/05/21 17:47 Dose: 50 mcg Documented by: ANJEILCA Gabapentin (Gabapentin 100 Mg Capsule) 200 mg PO BEDTIME [facility] Last Admin: 09/06/21 21:10 Dose: 200 mg Documented by: JUAN ANTONIO Bumetanide 25 mg/ IV (Miscellaneous Supplies) 100 mls @ 4 mls/hr IVCONT .Q24H [facility] Lactase (Lactase Tablet) 1 tab PO QID PRN PRN Reason: gi upset Latanoprost (Latanoprost 0.005 % Ophth [place] 2.5 Ml Drops) 1 drop EYE-BOTH BEDTIME [facility] Last Admin: 09/06/21 21:10 Dose: 1 drop Documented by: JUAN ANTONIO Methylprednisolone Sodium Succinate (Methylprednisolone Sod Succ 125 Mg/2 Ml Vial) 60 mg IVPUSH Q12H [facility] Last Admin: 09/07/21 08:56 Dose: 60 mg Documented by: OCHOA Multivitamins/Vitamin C (Multivitamin Tablet) 1 tab PO DAILY [facility] Last Admin: 09/07/21 08:57 Dose: Not Given Documented by: OCHOA Non-Admin Reason: Patient Refused Pharmacy Consult (Consult Rx Perform Med Rec) 1 each MISCELLANE ONCE PRN PRN Reason: Consult order Sodium Chloride (0.9 % Sodium Chloride Flush 3 Ml Syringe) 3 ml IVFLUSH QSHIFT [facility] Last Admin: 09/07/21 09:02 Dose: Not Given Documented by: OCHOA Non-Admin Reason: IV Running Vitamin D (Cholecalciferol (Vitamin D3) 25 Mcg Tablet) 50 mcg PO DAILY [facility] Last Admin: 09/07/21 08:55 Dose: 50 mcg Documented by: OCHOA Warfarin Sodium (Warfarin Sodium 2 Mg Tablet) 2 mg PO DAILY@1800 [facility] Labs CBC & Chem 7: 09/07/21 06:10 09/07/21 06:10 Labs: Laboratory Results - last 24 hr 09/06/21 09/06/21 09/07/21 05:49 05:49 06:10 MCV MCH MCHC RDW Plt Count MPV Absolute Nucleated RBC Nucleated RBC % (auto) PT 32.0 H INR 2.8 H Anion Gap Estim Creat Clear Calc Estimated GFR Fasting Glucose Calcium Magnesium B-Natriuretic Peptide Vitamin B12 1433 H Folate > 20.0 TSH 0.28 L Free T4 1.11 09/07/21 09/07/21 09/07/21 06:10 06:10 06:10 MCV 100.9 H MCH 30.2 MCHC 29.9 L RDW 16.2 H Plt Count 289 MPV 10.1 Absolute Nucleated RBC 0.000 Nucleated RBC % (auto) 0.0 PT INR Anion Gap 15 Estim Creat Clear Calc 30.0 Estimated GFR 46 Fasting Glucose 163 H Calcium 10.7 H Magnesium 2.0 B-Natriuretic Peptide 1045 H Vitamin B12 Folate TSH Free T4 Microbiology Microbiology Results: Microbiology 09/05/21 Unknown Urine Culture - Final Urine clean catch - Urine [place] Assessment and Plan (1) CO2 retention: Status: Acute Assessment and Plan: 85F presented withhypoxia and le weakness acute on chronic hypoxic respiratory failure due to acute on chronic diastolic chf with moderate AI and moderate MS and COPD with eacerbation bumex infusion diamox increased to 500mg bid monitor labs closely pulm appreciated chronic atrial fibrillation continue diltiazem 30mg qid coumadin - goal inr 2-3 monitor history of DVT coumadin jerking movements on exertion if still persistent after correction of electrolytes will consider neuro eval Quality Stroke Does the patient have a stroke diagnosis?: No VTE Prior VTE?: Yes VTE Risk Level:: Medical - moderate - high VTE Device Contraindication: Treatment Not Indicated VTE Drug Contraindication: N/A - Med Ordered
[2021-09-07] MEDS: Bumetanide 25 MG in Container,Empty 0 ML 4 MG IVCONT (10:38)
--- NOTE | 2021-09-07 12:53 | MHC.CM.PN ---
per rounds pt may be ready for dc today pt acceptrd at [facility] [place]
[2021-09-07] MEDS: Albuterol/Iprat 2.5/0.5MG 3 ML AMPUL.NEB INHALE (17:04)
[2021-09-07] MEDS: Warfarin Sodium 2 MG TABLET PO (17:24)
[2021-09-07] MEDS: Latanoprost 0.005 % Ophth Sol 2.5 ML DROPS 1 DROP EYE-BOTH (20:34)
[2021-09-07] MEDS: Gabapentin 100 MG CAPSULE 200 MG PO (20:34)
[2021-09-07] MEDS: 0.9 % Sodium Chloride Flush 3 ML SYRINGE IVFLUSH (20:35)
[2021-09-08] VITALS (8 sets, daily range): BP systolic 97–166; BP diastolic 61–89; PULSE 68–84; RESP 18–20; TEMP 35.7–37; O2SAT 91–94
[2021-09-08 06:32] LABS: Hematocrit 41.7 % (37.0-47.0); Hemoglobin 12.5 g/dl (12.0-16.0); Mean Corpuscular Hemoglobin 29.8 pg (27.0-33.0); Mean Corpuscular Volume 99.5 fL (80.0-98.0); Mean Platelet Volume 10.4 fL (9.4-12.3); Platelet Count 268 X10*3/uL (160-400); Red Blood Count 4.19 X10*6/uL (4.20-5.50); Red Cell Distribution Width 15.9 % (11.0-16.0); White Blood Count 14.4 X10*3/uL (4.8-10.8)
[2021-09-08 06:46] LABS: Anion Gap 14 (12-20); Blood Urea Nitrogen 58 mg/dL (9-16); Calcium 9.6 mg/dL (8.4-10.2); Carbon Dioxide 45 mmol/L (22-29); Chloride 88 mmol/L (96-108); Creatinine Clr Calc Pharmacy 31.7; Estimated Glomerular Filt Rate 48; Glucose Fasting 166 mg/dL (60-99); Potassium 2.6 mmol/L (3.3-5.1); Sodium 144 mmol/L (135-145)
[2021-09-08 06:47] LABS: INTERNATIONAL NORM RATIO 3.9 (0.9-1.1); Prothrombin Time 45.3 SEC (9.9-13.0)
[2021-09-08] MEDS: Docusate Sodium 100 MG CAPSULE PO (09:01)
[2021-09-08] MEDS: Potassium Chloride ER 20 MEQ TAB.ER.PRT 40 MEQ PO ×2 (09:01→16:58)
[2021-09-08] MEDS: Multivitamin TABLET 1 TAB PO (09:01)
[2021-09-08] MEDS: dilTIAZem HCL 30 MG TABLET PO (09:02)
[2021-09-08] MEDS: Magnesium Oxide 400 MG TABLET PO ×2 (09:02→16:57)
[2021-09-08] MEDS: Aspirin 81 MG TAB.CHEW PO (09:02)
[2021-09-08] MEDS: Ezetimibe 10 MG TABLET PO (09:02)
[2021-09-08] MEDS: amLODIPine Besylate 2.5 MG TABLET PO (09:02)
[2021-09-08] MEDS: Bumetanide 1 MG TABLET PO ×2 (09:02→16:57)
[2021-09-08] MEDS: allopurinoL 100 MG TABLET PO (09:02)
[2021-09-08] MEDS: Cholecalciferol (Vitamin D3) 25 MCG TABLET 50 MCG PO (09:03)
[2021-09-08] MEDS: 0.9 % Sodium Chloride Flush 3 ML SYRINGE IVFLUSH ×3 (09:05→21:14)
[2021-09-08] MEDS: methylPREDNISolone Sod Succ 125 MG/2 ML VIAL 60 MG IVPUSH ×2 (09:05→21:13)
[2021-09-08] MEDS: acetaZOLAMIDE sodium 500 MG VIAL IVPUSH ×2 (09:30→21:24)
--- NOTE | 2021-09-08 09:39 | HO.PM.IMPN ---
Subjective Subjective Date of Service: 09/08/21 Interval History: cc: weakness interval history: still weak Cardiovascular Cardiovascular: Reports no additional cardiovascular complaints Gastrointestinal Gastrointestinal: Reports no additional gastrointestinal complaints Physical Exam Vital Signs: Vital Signs: Last Vital Signs Temp 97.9 F 09/08/21 07:52 Pulse 69 09/08/21 09:02 Resp 18 09/08/21 07:52 BP 150/89 H 09/08/21 09:02 Pulse Ox 92 09/08/21 07:52 Oxygen Flow Rate 1 09/05/21 09:38 BMI result Body Mass Index 25.4 General: AO X 3, no acute distress Resp: diminished with wheezes bilateral, no accessory muscles used CVS: S1,S2,irregular GI: soft, non tender, non distended Neuro:? choreaform movements on exertion, alert Psych: appropriate affect, appropriate insight? Objective Data Active Medications Acetazolamide (Acetazolamide Sodium 500 Mg Vial) 500 mg IVPUSH BID [facility] Last Admin: 09/08/21 09:30 Dose: 500 mg Documented by: KAVON Albuterol/Ipratropium (Albuterol/Iprat 2.5/0.5mg 3 Ml Ampul.Neb) 3 ml INHALE RQ4H PRN PRN Reason: sob Last Admin: 09/07/21 17:04 Dose: 3 ml Documented by: JACQUELINE Allopurinol (Allopurinol 100 Mg Tablet) 100 mg PO DAILY [facility] Last Admin: 09/08/21 09:02 Dose: 100 mg Documented by: KAVON Amlodipine Besylate (Amlodipine Besylate 2.5 Mg Tablet) 2.5 mg PO DAILY [facility]; Protocol Last Admin: 09/08/21 09:02 Dose: 2.5 mg Documented by: KAVON Aspirin (Aspirin 81 Mg Tab.Chew) 81 mg PO DAILY [facility] Last Admin: 09/08/21 09:02 Dose: 81 mg Documented by: KAVON Brimonidine Tartrate (Brimonidine Tartrate 0.2% Oph 5 Ml Bottle) 1 drop EYE-BOTH BID [facility] Last Admin: 09/07/21 20:35 Dose: 1 drop Documented by: MARY Bumetanide (Bumetanide 1 Mg Tablet) 1 mg PO BID@0800,1700 [facility]; Protocol Last Admin: 09/08/21 09:02 Dose: 1 mg Documented by: KAVON Diltiazem HCl (Diltiazem Hcl 30 Mg Tablet) 30 mg PO QID [facility]; Protocol Last Admin: 09/08/21 09:02 Dose: 30 mg Documented by: KAVON Docusate Sodium (Docusate Sodium 100 Mg Capsule) 100 mg PO DAILY [facility] Last Admin: 09/08/21 09:01 Dose: 100 mg Documented by: KAVON Ezetimibe (Ezetimibe 10 Mg Tablet) 10 mg PO DAILY [facility] Last Admin: 09/08/21 09:02 Dose: 10 mg Documented by: KAVON Fentanyl (Fentanyl 50 Mcg Patch.Td72) 50 mcg TRANSDERMA Q3D [facility] Last Admin: 09/05/21 17:47 Dose: 50 mcg Documented by: ANJELICA Gabapentin (Gabapentin 100 Mg Capsule) 200 mg PO BEDTIME [facility] Last Admin: 09/07/21 20:34 Dose: 200 mg Documented by: MARY Lactase (Lactase Tablet) 1 tab PO QID PRN PRN Reason: gi upset Latanoprost (Latanoprost 0.005 % Ophth Bernarda 2.5 Ml Drops) 1 drop EYE-BOTH BEDTIME [facility] Last Admin: 09/07/21 20:34 Dose: 1 drop Documented by: MARY Magnesium Oxide (Magnesium Oxide 400 Mg Tablet) 400 mg PO BIDPC [facility] Last Admin: 09/08/21 09:02 Dose: 400 mg Documented by: KAVON Methylprednisolone Sodium Succinate (Methylprednisolone Sod Succ 125 Mg/2 Ml Vial) 60 mg IVPUSH Q12H [facility] Last Admin: 09/08/21 09:05 Dose: 60 mg Documented by: KAVON Multivitamins/Vitamin C (Multivitamin Tablet) 1 tab PO DAILY [facility] Last Admin: 09/08/21 09:01 Dose: 1 tab Documented by: KAVON Pharmacy Consult (Consult Rx Perform Med Rec) 1 each MISCELLANE ONCE PRN PRN Reason: Consult order Potassium Chloride (Potassium Chloride Er 20 Meq Tab.Er.Prt) 40 meq PO ONCE ONE Stop: 09/08/21 16:01 Sodium Chloride (0.9 % Sodium Chloride Flush 3 Ml Syringe) 3 ml IVFLUSH QSHIFT [facility] Last Admin: 09/08/21 09:05 Dose: 3 ml Documented by: KAVON Vitamin D (Cholecalciferol (Vitamin D3) 25 Mcg Tablet) 50 mcg PO DAILY [facility] Last Admin: 09/08/21 09:03 Dose: 50 mcg Documented by: KAVON Warfarin Sodium (Warfarin Sodium 2 Mg Tablet) 2 mg PO DAILY@1800 [facility] Last Admin: 09/07/21 17:24 Dose: 2 mg Documented by: OCHOA Labs CBC & Chem 7: 09/08/21 05:52 09/08/21 05:52 Labs: Laboratory Results - last 24 hr 09/08/21 09/08/21 09/08/21 05:52 05:52 05:52 MCV 99.5 H MCH 29.8 MCHC 30.0 L RDW 15.9 Plt Count 268 MPV 10.4 Absolute Nucleated RBC 0.000 Nucleated RBC % (auto) 0.0 PT 45.3 H INR 3.9 H Anion Gap 14 Estim Creat Clear Calc 31.7 Estimated GFR 48 Fasting Glucose 166 H Calcium 9.6 D Assessment and Plan (1) CO2 retention: Status: Acute Assessment and Plan: 85F presented withhypoxia and le weakness acute on chronic hypoxic respiratory failure due to acute on chronic diastolic chf with moderate AI and moderate MS and COPD with eacerbation will change to po bumex 1mg bid continue diamox 500mg bid monitor labs closely pulm appreciated continue steroids hypokalemia replace and monitor chronic atrial fibrillation continue diltiazem will change to 180mg daily long acting coumadin - goal inr 2-3 monitor history of DVT coumadin jerking movements on exertion if still persistent after correction of electrolytes will consider neuro eval Quality Stroke Does the patient have a stroke diagnosis?: No VTE Prior VTE?: Yes VTE Risk Level:: Medical - moderate - high VTE Device Contraindication: Treatment Not Indicated VTE Drug Contraindication: N/A - Med Ordered
[2021-09-08] MEDS: fentaNYL 50 MCG PATCH.TD72 TRANSDERMA (17:51)
[2021-09-08] MEDS: Brimonidine Tartrate 0.2% Oph 5 ML BOTTLE 1 DROP EYE-BOTH (21:13)
[2021-09-08] MEDS: Latanoprost 0.005 % Ophth Sol 2.5 ML DROPS 1 DROP EYE-BOTH (21:14)
[2021-09-08] MEDS: Gabapentin 100 MG CAPSULE 200 MG PO (21:48)
[2021-09-09 03:36] VITALS: BP 133/65; PULSE 69; RESP 18; TEMP 36.9; O2SAT 93
[2021-09-09 06:40] LABS: INTERNATIONAL NORM RATIO 3.3 (0.9-1.1); Prothrombin Time 38.2 SEC (9.9-13.0)
[2021-09-09 06:41] LABS: Hematocrit 43.1 % (37.0-47.0); Hemoglobin 12.6 g/dl (12.0-16.0); Mean Corpuscular HGB Conc 29.2 g/dl (31.0-35.0); Mean Corpuscular Hemoglobin 29.6 pg (27.0-33.0); Mean Corpuscular Volume 101.2 fL (80.0-98.0); Mean Platelet Volume 10.7 fL (9.4-12.3); Platelet Count 267 X10*3/uL (160-400); Red Blood Count 4.26 X10*6/uL (4.20-5.50); Red Cell Distribution Width 15.8 % (11.0-16.0); White Blood Count 12.7 X10*3/uL (4.8-10.8)
[2021-09-09 06:53] LABS: Anion Gap 12 (12-20); Blood Urea Nitrogen 65 mg/dL (9-16); Calcium 9.8 mg/dL (8.4-10.2); Carbon Dioxide 42 mmol/L (22-29); Chloride 92 mmol/L (96-108); Creatinine Clr Calc Pharmacy 31.4; Estimated Glomerular Filt Rate 48; Glucose Fasting 186 mg/dL (60-99); Magnesium 2.6 mg/dL (1.6-2.6); Potassium 3.3 mmol/L (3.3-5.1); Sodium 143 mmol/L (135-145)
[2021-09-09 08:00] VITALS: BP 164/73; PULSE 70; RESP 18; TEMP 36.4; O2SAT 95
[2021-09-09] MEDS: acetaZOLAMIDE sodium 500 MG VIAL IVPUSH ×2 (09:41→20:32)
[2021-09-09] MEDS: amLODIPine Besylate 2.5 MG TABLET PO (09:49)
[2021-09-09] MEDS: Ezetimibe 10 MG TABLET PO (09:50)
[2021-09-09] MEDS: Cholecalciferol (Vitamin D3) 25 MCG TABLET 50 MCG PO (09:50)
[2021-09-09] MEDS: Bumetanide 1 MG TABLET PO ×2 (09:50→16:13)
[2021-09-09] MEDS: Potassium Chloride ER 20 MEQ TAB.ER.PRT 40 MEQ PO (09:50)
[2021-09-09] MEDS: Magnesium Oxide 400 MG TABLET PO ×2 (09:51→16:13)
[2021-09-09] MEDS: allopurinoL 100 MG TABLET PO (09:51)
[2021-09-09] MEDS: Aspirin 81 MG TAB.CHEW PO (09:51)
[2021-09-09] MEDS: dilTIAZem HCL CD 180 MG CAP.ER.24H PO (09:51)
[2021-09-09] MEDS: Multivitamin TABLET 1 TAB PO (09:51)
[2021-09-09] MEDS: 0.9 % Sodium Chloride Flush 3 ML SYRINGE IVFLUSH ×3 (09:56→20:32)
[2021-09-09] MEDS: Brimonidine Tartrate 0.2% Oph 5 ML BOTTLE 1 DROP EYE-BOTH ×2 (10:00→20:33)
--- NOTE | 2021-09-09 10:02 | P.PNIM_ITS ---
Subjective Subjective Date of Service: 09/09/21 Interval History: cc: weakness interval history: still weak Cardiovascular Cardiovascular: Reports no additional cardiovascular complaints Respiratory Respiratory: Reports no additional respiratory complaints Physical Exam Vital Signs: Vital Signs: Last Vital Signs Temp 97.5 F 09/09/21 08:00 Pulse 70 09/09/21 08:00 Resp 18 09/09/21 08:00 BP 164/73 H 09/09/21 08:00 Pulse Ox 95 09/09/21 08:00 Oxygen Flow Rate 1 09/05/21 09:38 BMI result Body Mass Index 25.4 General: AO X 3, no acute distress Resp: diminished with wheezes bilateral, no accessory muscles used CVS: S1,S2,irregular GI: soft, non tender, non distended Neuro:? choreaform movements on exertion, alert Psych: appropriate affect, appropriate insight? Objective Data Active Medications Acetazolamide (Acetazolamide Sodium 500 Mg Vial) 500 mg IVPUSH BID [facility] Last Admin: 09/09/21 09:41 Dose: 500 mg Documented by: ASHLEY Albuterol/Ipratropium (Albuterol/Iprat 2.5/0.5mg 3 Ml Ampul.Neb) 3 ml INHALE RQ4H PRN PRN Reason: sob Last Admin: 09/07/21 17:04 Dose: 3 ml Documented by: JACQUELINE Allopurinol (Allopurinol 100 Mg Tablet) 100 mg PO DAILY [facility] Last Admin: 09/09/21 09:51 Dose: 100 mg Documented by: ASHLEY Amlodipine Besylate (Amlodipine Besylate 2.5 Mg Tablet) 2.5 mg PO DAILY [facility]; Protocol Last Admin: 09/09/21 09:49 Dose: 2.5 mg Documented by: ASHLEY Aspirin (Aspirin 81 Mg Tab.Chew) 81 mg PO DAILY [facility] Last Admin: 09/09/21 09:51 Dose: 81 mg Documented by: ASHLEY Brimonidine Tartrate (Brimonidine Tartrate 0.2% Oph 5 Ml Bottle) 1 drop EYE- BOTH BID [facility] Last Admin: 09/09/21 10:00 Dose: 1 drop Documented by: ASHLEY Bumetanide (Bumetanide 1 Mg Tablet) 1 mg PO BID@0800,1700 [facility]; Protocol Last Admin: 09/09/21 09:50 Dose: 1 mg Documented by: ASHLEY Diltiazem HCl (Diltiazem Hcl Cd 180 Mg Cap.Er.24h) 180 mg PO DAILY [facility]; Protocol Last Admin: 09/09/21 09:51 Dose: 180 mg Documented by: ASHLEY Docusate Sodium (Docusate Sodium 100 Mg Capsule) 100 mg PO DAILY [facility] Last Admin: 09/09/21 09:51 Dose: Not Given Documented by: ASHLEY Non-Admin Reason: Patient Refused Ezetimibe (Ezetimibe 10 Mg Tablet) 10 mg PO DAILY [facility] Last Admin: 09/09/21 09:50 Dose: 10 mg Documented by: ASHLEY Fentanyl (Fentanyl 50 Mcg Patch.Td72) 50 mcg TRANSDERMA Q3D [facility] Last Admin: 09/08/21 17:51 Dose: 50 mcg Documented by: KAVON Gabapentin (Gabapentin 100 Mg Capsule) 200 mg PO BEDTIME [facility] Last Admin: 09/08/21 21:48 Dose: 200 mg Documented by: ZEKE Lactase (Lactase Tablet) 1 tab PO QID PRN PRN Reason: gi upset Latanoprost (Latanoprost 0.005 % Ophth Bernarda 2.5 Ml Drops) 1 drop EYE-BOTH BEDTIME [facility] Last Admin: 09/08/21 21:14 Dose: 1 drop Documented by: ZEKE Magnesium Oxide (Magnesium Oxide 400 Mg Tablet) 400 mg PO BIDPC [facility] Last Admin: 09/09/21 09:51 Dose: 400 mg Documented by: ASHLEY Multivitamins/Vitamin C (Multivitamin Tablet) 1 tab PO DAILY [facility] Last Admin: 09/09/21 09:51 Dose: 1 tab Documented by: ASHLEY Pharmacy Consult (Consult Rx Perform Med Rec) 1 each MISCELLANE ONCE PRN PRN Reason: Consult order Prednisone (Prednisone 20 Mg Tablet) 40 mg PO DAILY [facility] Sodium Chloride (0.9 % Sodium Chloride Flush 3 Ml Syringe) 3 ml IVFLUSH QSHIFT [facility] Last Admin: 09/09/21 09:56 Dose: 3 ml Documented by: ASHLEY Vitamin D (Cholecalciferol (Vitamin D3) 25 Mcg Tablet) 50 mcg PO DAILY [facility] Last Admin: 09/09/21 09:50 Dose: 50 mcg Documented by: ASHLEY Warfarin Sodium (Warfarin Sodium 2 Mg Tablet) 2 mg PO DAILY@1800 [facility] Last Admin: 09/07/21 17:24 Dose: 2 mg Documented by: OCHOA Labs CBC & Chem 7: 09/09/21 05:50 09/09/21 05:50 Labs: Laboratory Results - last 24 hr 09/09/21 09/09/21 09/09/21 05:50 05:50 05:51 MCV 101.2 H MCH 29.6 MCHC 29.2 L RDW 15.8 Plt Count 267 MPV 10.7 Absolute Nucleated RBC 0.000 Nucleated RBC % (auto) 0.0 PT 38.2 H INR 3.3 H Anion Gap 12 Estim Creat Clear Calc 31.4 Estimated GFR 48 Fasting Glucose 186 H Calcium 9.8 Magnesium 2.6 Assessment and Plan (1) CO2 retention: Status: Acute Assessment and Plan: 85F presented withhypoxia and le weakness acute on chronic hypoxic respiratory failure due to acute on chronic diastolic chf with moderate AI and moderate MS and COPD with eacerbation po bumex 1mg bid continue diamox 500mg bid monitor labs closely continue steroids will change to po hypokalemia replace and monitor chronic atrial fibrillation diltiazem 180mg daily long acting coumadin - goal inr 2-3 monitor history of DVT coumadin jerking movements on exertion if still persistent after correction of electrolytes will consider neuro eval Quality Stroke Does the patient have a stroke diagnosis?: No VTE Prior VTE?: Yes VTE Risk Level:: Medical - moderate - high VTE Device Contraindication: Treatment Not Indicated VTE Drug Contraindication: N/A - Med Ordered
[2021-09-09 11:22] VITALS: BP 128/51; PULSE 72; RESP 15; TEMP 36.4; O2SAT 95
[2021-09-09 14:49] LABS: VBG Base Excess 23.9 mmol/L; VBG HCO3 55 mmol/L (22-26); VBG pCO2 92 mmHg; VBG pH 7.38 (7.32-7.43); VBG pO2 59 mmHg
[2021-09-09 14:50] LABS: Venous Blood Gas Refer to POC result
[2021-09-09 15:12] VITALS: BP 148/72; PULSE 64; RESP 18; TEMP 36.6; O2SAT 93
[2021-09-09 19:04] VITALS: BP 129/61; PULSE 84; RESP 16; TEMP 36.7; O2SAT 91
[2021-09-09] MEDS: Latanoprost 0.005 % Ophth Sol 2.5 ML DROPS 1 DROP EYE-BOTH (20:32)
[2021-09-09] MEDS: Gabapentin 100 MG CAPSULE 200 MG PO (20:32)
[2021-09-09 23:39] VITALS: BP 163/80; PULSE 82; RESP 20; TEMP 36.3; O2SAT 90
[2021-09-10] VITALS (9 sets, daily range): BP systolic 114–156; BP diastolic 66–78; PULSE 72–99; RESP 15–22; TEMP 36–36.4; O2SAT 89–97
[2021-09-10 06:41] LABS: Hematocrit 45.3 % (37.0-47.0); Hemoglobin 13.4 g/dl (12.0-16.0); Mean Corpuscular HGB Conc 29.6 g/dl (31.0-35.0); Mean Corpuscular Hemoglobin 29.9 pg (27.0-33.0); Mean Corpuscular Volume 101.1 fL (80.0-98.0); Mean Platelet Volume 10.5 fL (9.4-12.3); Platelet Count 327 X10*3/uL (160-400); Red Blood Count 4.48 X10*6/uL (4.20-5.50); Red Cell Distribution Width 15.5 % (11.0-16.0); White Blood Count 16.1 X10*3/uL (4.8-10.8)
[2021-09-10 06:51] LABS: Anion Gap 16 (12-20); Blood Urea Nitrogen 79 mg/dL (9-16); Calcium 9.9 mg/dL (8.4-10.2); Carbon Dioxide 37 mmol/L (22-29); Chloride 94 mmol/L (96-108); Creatinine Clr Calc Pharmacy 36.4; Estimated Glomerular Filt Rate 57; Glucose Fasting 185 mg/dL (60-99); Potassium 3.5 mmol/L (3.3-5.1); Sodium 143 mmol/L (135-145)
[2021-09-10 06:54] LABS: INTERNATIONAL NORM RATIO 1.9 (0.9-1.1); Prothrombin Time 22.3 SEC (9.9-13.0)
--- NOTE | 2021-09-10 08:15 | W.MHC.ACPN ---
Advanced Care Planning Note Advanced Care Planning Note Discussed with: family member(s) Time spent (in minutes): 16 Narrative: case discussed with patient's daughter over the phone and previously at beside. discussed diagnosis of acute respiratory failure and sever pulm hypertension. daughter expressed patient's desire to avoid heroic measures, she is DNR/DNI. she would like to attempt Non invasive ventilation while there is a reasonable chance of short term recovery. if condition continues to decline, she would not want interventions excalated further and would pursue comfort measures. Problems Discussed (1) CO2 retention:
--- NOTE | 2021-09-10 09:29 | P.PNIM_ITS ---
Subjective Subjective Date of Service: 09/10/21 Interval History: cc: weakness interval history: was obtunded and hypoxic this AM, placed on bipap, now lethargic and oriented times 3, denies sob but feeling very weak Cardiovascular Cardiovascular: Reports no additional cardiovascular complaints Gastrointestinal Gastrointestinal: Reports no additional gastrointestinal complaints Physical Exam Vital Signs: Vital Signs: Last Vital Signs Temp 97 F 09/10/21 07:02 Pulse 83 09/10/21 07:02 Resp 18 09/10/21 08:33 BP 118/66 09/10/21 07:02 Pulse Ox 89 L 09/10/21 07:02 Oxygen Flow Rate 1 09/05/21 09:38 BMI result Body Mass Index 25.4 General: lethargic O X 3, tachypneic Resp: diminshed with wheezes bilateral, accessory muscles used CVS: S1,S2,irregular, murmur GI: soft, non tender, non distended Neuro: motor grossly intact, lethargic Psych: appropriate affect, impaired insight Objective Data Active Medications Acetazolamide (Acetazolamide Sodium 500 Mg Vial) 500 mg IVPUSH BID [facility] Last Admin: 09/09/21 20:32 Dose: 500 mg Documented by: MEREL Albuterol/Ipratropium (Albuterol/Iprat 2.5/0.5mg 3 Ml Ampul.Neb) 3 ml INHALE RQ4H PRN PRN Reason: sob Last Admin: 09/07/21 17:04 Dose: 3 ml Documented by: JACQUELINE Allopurinol (Allopurinol 100 Mg Tablet) 100 mg PO DAILY [facility] Last Admin: 09/09/21 09:51 Dose: 100 mg Documented by: ASHLEY Amlodipine Besylate (Amlodipine Besylate 2.5 Mg Tablet) 2.5 mg PO DAILY [facility]; Protocol Last Admin: 09/09/21 09:49 Dose: 2.5 mg Documented by: ASHLEY Aspirin (Aspirin 81 Mg Tab.Chew) 81 mg PO DAILY [facility] Last Admin: 09/09/21 09:51 Dose: 81 mg Documented by: ASHLEY Brimonidine Tartrate (Brimonidine Tartrate 0.2% Oph 5 Ml Bottle) 1 drop EYE- BOTH BID [facility] Last Admin: 09/09/21 20:33 Dose: 1 drop Documented by: MERLE Bumetanide (Bumetanide 1 Mg Tablet) 1 mg PO BID@0800,1700 [facility]; Protocol Last Admin: 09/09/21 16:13 Dose: 1 mg Documented by: ASHLEY Diltiazem HCl (Diltiazem Hcl Cd 180 Mg Cap.Er.24h) 180 mg PO DAILY [facility]; P rotocol Last Admin: 09/09/21 09:51 Dose: 180 mg Documented by: ASHLEY Docusate Sodium (Docusate Sodium 100 Mg Capsule) 100 mg PO DAILY [facility] Last Admin: 09/09/21 09:51 Dose: Not Given Documented by: ASHLEY Non-Admin Reason: Patient Refused Ezetimibe (Ezetimibe 10 Mg Tablet) 10 mg PO DAILY [facility] Last Admin: 09/09/21 09:50 Dose: 10 mg Documented by: ASHLEY Fentanyl (Fentanyl 50 Mcg Patch.Td72) 50 mcg TRANSDERMA Q3D [facility] Last Admin: 09/08/21 17:51 Dose: 50 mcg Documented by: KAVON Gabapentin (Gabapentin 100 Mg Capsule) 200 mg PO BEDTIME [facility] Last Admin: 09/09/21 20:32 Dose: 200 mg Documented by: MERLE Lactase (Lactase Tablet) 1 tab PO QID PRN PRN Reason: gi upset Latanoprost (Latanoprost 0.005 % Ophth Bernarda 2.5 Ml Drops) 1 drop EYE-BOTH BEDTIME [facility] Last Admin: 09/09/21 20:32 Dose: 1 drop Documented by: MERLE Magnesium Oxide (Magnesium Oxide 400 Mg Tablet) 400 mg PO BIDPC [facility] Last Admin: 09/09/21 16:13 Dose: 400 mg Documented by: ASHLEY Multivitamins/Vitamin C (Multivitamin Tablet) 1 tab PO DAILY [facility] Last Admin: 09/09/21 09:51 Dose: 1 tab Documented by: ASHLEY Pharmacy Consult (Consult Rx Perform Med Rec) 1 each MISCELLANE ONCE PRN PRN Reason: Consult order Prednisone (Prednisone 20 Mg Tablet) 40 mg PO DAILY [facility] Sodium Chloride (0.9 % Sodium Chloride Flush 3 Ml Syringe) 3 ml IVFLUSH QSHIFT [facility] Last Admin: 09/09/21 20:32 Dose: 3 ml Documented by: MERLE Vitamin D (Cholecalciferol (Vitamin D3) 25 Mcg Tablet) 50 mcg PO DAILY [facility] Last Admin: 09/09/21 09:50 Dose: 50 mcg Documented by: ASHLEY Warfarin Sodium (Warfarin Sodium 1 Mg Tablet) 1 mg PO DAILY@1800 [facility] Labs CBC & Chem 7: 09/10/21 06:02 09/10/21 06:02 Labs: Laboratory Results - last 24 hr 09/09/21 09/10/21 09/10/21 14:41 06:02 06:02 MCV 101.1 H MCH 29.9 MCHC 29.6 L RDW 15.5 Plt Count 327 MPV 10.5 Absolute Nucleated RBC 0.000 Nucleated RBC % (auto) 0.0 PT INR VBG pH 7.38 VBG pCO2 92 VBG pO2 59 VBG HCO3 55 H VBG O2 Saturation 84.0 VBG Base Excess 23.9 Anion Gap 16 Estim Creat Clear Calc 36.4 Estimated GFR 57 Fasting Glucose 185 H Calcium 9.9 09/10/21 06:02 MCV MCH MCHC RDW Plt Count MPV Absolute Nucleated RBC Nucleated RBC % (auto) PT 22.3 H INR 1.9 H VBG pH VBG pCO2 VBG pO2 VBG HCO3 VBG O2 Saturation VBG Base Excess Anion Gap Estim Creat Clear Calc Estimated GFR Fasting Glucose Calcium Assessment and Plan (1) CO2 retention: Status: Acute Assessment and Plan: 85F presented with hypoxia and le weakness, this AM complicated by severe hypoxia and AMS acute on chronic hypoxic and hypercapneic respiratory failure due to acute on chronic diastolic chf with moderate AI and moderate MS and COPD with eacerbation further complicated by metabolic encephalopathy recorded fluid balance -[id number] improving on Bipap follow up vbg continue bumex, diamox cxr with left effusion - ?thoracentesis monitor labs closely continue steroids will change back to IV hypokalemia replace and monitor chronic atrial fibrillation diltiazem 180mg daily long acting coumadin - goal inr 2-3 monitor history of DVT coumadin DNR/DNI (see acp note from today) Quality Stroke Does the patient have a stroke diagnosis?: No VTE Prior VTE?: Yes VTE Risk Level:: Medical - moderate - high VTE Device Contraindication: Treatment Not Indicated VTE Drug Contraindication: N/A - Med Ordered
[2021-09-10 10:13] LABS: ABG Refer to POC result
[2021-09-10 10:13] LABS: ABG Base Excess 19.7 mmol/L; ABG HCO3 50 mmol/L (22-26); ABG pCO2 88 mmHg (32-45); ABG pCO2 TC 87 mmHg (32-45); ABG pH 7.36 (7.35-7.45); ABG pH TC 7.37 (7.35-7.45); ABG pO2 93 mmHg (83-108); ABG pO2 TC 91 (83-108)
--- NOTE | 2021-09-10 11:03 | PC.NURSE ---
Addendum entered by Octavia Luque RN 09/10/21 14:16: Patient remains lethargic, aware. Patient's daughter requesting for patient to remain on BIPAP until patient's son arrives from [place] tomorrow, MD aware is ok with that plan at this time as long as patient continues to tolerate it. Addendum entered by Octavia Luque RN 09/10/21 12:20: No urine output noted this morning. Bladder scan for 871ml. Notified MD. Placed 14 F echavarria catheter per order. Upon insertion echavarria drained 900 ml yellow urine. Patient's daughter at bedside and states her and her family are in agreement for comfort measures only. Reported to . Original Note: Upon assessment around 0730 patient found to be lethargic with minimal response to sternal rub. O2 sats found to be around 89-90 on 9L chung nasal cannula. Other vitals included: temp 97.0, HR 83 a.fib with PVCs on tele, BP 118/66. Patients respiratory effort was labored with accessory muscle use, airway being maintained at the time. at bedside for rounding. CXR ordered and showing left lung pleural effusion. MD spoke to patient's family, expressed willingness to try BIPAP, patient DNR/DNI status. Patient placed on BIPAP: 16/5 rate of 12. Requiring fio2 of 100%, O2 sats trending in the low 80s on less fio2. On 100%fio2, O2 sats now trending in the low 90s. Telesitter camera placed for patient safety. Around 0930 ABGs drawn: 7.36/88/93/50. Patient able to open eyes and oriented to person and place only but remains lethargic. Hearing aids in place. Patient's daughter bedside. Update given to daughter with this RN and . Monitoring for now. [employer] consulted.
[2021-09-10] MEDS: Scopolamine 1.5 MG PATCH.TD.3 TRANSDERMA (14:03)
[2021-09-10] MEDS: 0.9 % Sodium Chloride Flush 3 ML SYRINGE IVFLUSH ×2 (16:46→20:24)
[2021-09-11] VITALS (8 sets, daily range): BP systolic 135–190; BP diastolic 76–109; PULSE 77–127; RESP 14–25; TEMP 36.1–36.4; O2SAT 90–96
--- NOTE | 2021-09-11 09:32 | P.PNIM_ITS ---
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 Cardiovascular Cardiovascular: Reports no additional cardiovascular complaints Gastrointestinal Gastrointestinal: Reports no additional gastrointestinal complaints Physical Exam 2 Vital Signs: Vital Signs: Last Vital Signs Temp 96.8 F 09/10/21 11:12 Pulse 99 09/10/21 11:12 Resp 25 H 09/11/21 07:36 BP 114/77 09/10/21 11:12 Pulse Ox 91 L 09/10/21 11:12 Oxygen Flow Rate 1 09/05/21 09:38 BMI result Body Mass Index 25.4 General: lethargic O X 3, no acute distress Resp: diminished left lung, no accessory muscles used CVS: S1,S2,irregular, murmur GI: soft, non tender, non distended Neuro: motor grossly weak, alert Psych: appropriate affect, appropriate insight Objective Data Active Medications Albuterol/Ipratropium (Albuterol/Iprat 2.5/0.5mg 3 Ml Ampul.Neb) 3 ml INHALE RQ4H PRN PRN Reason: sob Last Admin: 09/07/21 17:04 Dose: 3 ml Documented by: JACQUELINE Fentanyl (Fentanyl 50 Mcg Patch.Td72) 50 mcg TRANSDERMA Q3D [facility] Last Admin: 09/08/21 17:51 Dose: 50 mcg Documented by: KAVON Morphine Sulfate (Morphine Sulfate 2 Mg/Ml Cartridge) 2 mg IVPUSH Q1H PRN PRN Reason: Discomfort/Shortness of breath Pharmacy Consult (Consult Rx Perform Med Rec) 1 each MISCELLANE ONCE PRN PRN Reason: Consult order Scopolamine (Scopolamine 1.5 Mg Patch.Td.3) 1.5 mg TRANSDERMA Q72H [facility] Last Admin: 09/10/21 14:03 Dose: 1.5 mg Documented by: ZHOU Sodium Chloride (0.9 % Sodium Chloride Flush 3 Ml Syringe) 3 ml IVFLUSH QSHIFT [facility] Last Admin: 09/10/21 20:24 Dose: 3 ml Documented by: SARAHI Labs CBC & Chem 7: 09/10/21 06:02 09/10/21 06:02 Labs: Laboratory Results - last 24 hr 09/10/21 10:01 O2 Saturation 97.0 ABG pH at Pt Temp 7.36 ABG pH (Temp Correct) 7.37 ABG pCO2 at Pt Temp 88 H* ABG pCO2 (Temp Corrct 87 H* ABG pO2 at Pt Temp 93 ABG pO2 (Temp Correct 91 ABG HCO3 50 H ABG Base Excess (Actual) 19.7 Assessment and Plan (1) CO2 retention: Status: Acute Assessment and Plan: 85F presented with hypoxia and le weakness, this AM complicated by severe hypoxia and AMS acute on chronic hypoxic and hypercapneic respiratory failure due to acute on chronic diastolic chf with moderate AI and moderate MS and COPD with eacerbation further complicated by metabolic encephalopathy 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 she wore bipap for about 24hrs to allow family members to come in to see her, this AM, still lethargic, but much more alert and talking, she would like to change from PATENT LEATHER SORTER back to DNR/DNI with conservative disease directed treatments. CXR from 09/10/21 showed opacification of left lung, plan for CT chest to determine proportion of atelectasis vs pleural effusion to see if patient would benefit from thoracocentesis (she would be open to one if needed) recorded fluid balance -5854cc improved on Bipap, can continue at night on bedside echo, appeared to have about 50% IVC collapse on inspiration, will hold diuretics for now given overall poor prognosis, will request hospice eval for informational chronic atrial fibrillation diltiazem 180mg daily long acting coumadin - goal inr 2-3 (on hold for possible thoracentesis) monitor history of DVT coumadin DNR/DNI Quality Stroke Does the patient have a stroke diagnosis?: No VTE Prior VTE?: Yes VTE Risk Level:: Medical - moderate - high VTE Device Contraindication: Treatment Not Indicated VTE Drug Contraindication: N/A - Med Ordered
--- NOTE | 2021-09-11 10:08 | MHC.CM.PN ---
met with pts daughter she is agreesable toa referal to hospice thru [facility] imformational will be today
[2021-09-11 13:37] LABS: INTERNATIONAL NORM RATIO 1.5 (0.9-1.1); Prothrombin Time 17.1 SEC (9.9-13.0)
[2021-09-11] MEDS: cefTRIAXone sodium 1 GM in 0.9 % Sodium Chloride 50 ML IV (13:53)
[2021-09-11] MEDS: 0.9 % Sodium Chloride Flush 3 ML SYRINGE IVFLUSH ×3 (13:57→20:16)
[2021-09-11] MEDS: Warfarin Sodium 1 MG TABLET PO (17:59)
[2021-09-11] MEDS: fentaNYL 50 MCG PATCH.TD72 TRANSDERMA (18:00)
[2021-09-12 04:00] VITALS: BP 160/58; PULSE 112; RESP 24; TEMP 35.9; O2SAT 89
[2021-09-12 06:47] LABS: Hematocrit 45.7 % (37.0-47.0); Hemoglobin 13.6 g/dl (12.0-16.0); Mean Corpuscular HGB Conc 29.8 g/dl (31.0-35.0); Mean Corpuscular Hemoglobin 29.6 pg (27.0-33.0); Mean Corpuscular Volume 99.6 fL (80.0-98.0); Mean Platelet Volume 10.7 fL (9.4-12.3); Platelet Count 267 X10*3/uL (160-400); Red Blood Count 4.59 X10*6/uL (4.20-5.50); Red Cell Distribution Width 15.3 % (11.0-16.0); White Blood Count 20.2 X10*3/uL (4.8-10.8)
[2021-09-12 06:59] VITALS: BP 112/58; PULSE 110; RESP 16; TEMP 36; O2SAT 90
[2021-09-12 07:05] LABS: INTERNATIONAL NORM RATIO 1.5 (0.9-1.1); Prothrombin Time 17.1 SEC (9.9-13.0)
[2021-09-12 07:30] LABS: Blood Urea Nitrogen 48 mg/dL (9-16); Creatinine Clr Calc Pharmacy 38.8; Estimated Glomerular Filt Rate > 60; Glucose Fasting 236 mg/dL (60-99)
[2021-09-12 07:52] LABS: Anion Gap 14 (12-20); Calcium 10.4 mg/dL (8.4-10.2); Carbon Dioxide 40 mmol/L (22-29); Chloride 97 mmol/L (96-108); Potassium 3.2 mmol/L (3.3-5.1); Sodium 148 mmol/L (135-145)
[2021-09-12] MEDS: 0.9 % Sodium Chloride Flush 3 ML SYRINGE IVFLUSH ×2 (09:14→16:48)
[2021-09-12] MEDS: Morphine Sulfate 2 MG/ML CARTRIDGE IVPUSH ×6 (10:15→22:11)
--- NOTE | 2021-09-12 11:33 | P.PNIM_ITS ---
Subjective Subjective Date of Service: 09/12/21 Interval History: the patient was seen and evaluated this morning Laying in bed, obtunded and very difficult to arouse Family at the bedside, daughter the HCP asked to change her status to hospice measures only No reported other overnight events. Systemic review: Altered mentation, nonverbal to answer Physical Exam Vital Signs: Vital Signs: Last Vital Signs Temp 96.8 F 09/12/21 06:59 Pulse 110 H 09/12/21 06:59 Resp 16 09/12/21 06:59 BP 112/58 L 09/12/21 06:59 Pulse Ox 90 L 09/12/21 06:59 Oxygen Flow Rate 1 09/05/21 09:38 BMI result Body Mass Index 25.4 Const: Other: Constitutional : Altered mentation, on oxygen supplement Cardiovascular : RRR, no lower extremity edema Respiratory : Chest wall moving bilaterally, on oxygen supplement Gastrointestinal: soft, lax, Normal bowel sounds, Non tender Skin : Warm, Dry Neurological : Altered mentation, encephalopathic Objective Data Active Medications Diltiazem HCl (Diltiazem Hcl Cd 180 Mg Cap.Er.24h) 180 mg PO DAILY [facility]; Protocol Last Admin: 09/12/21 09:15 Dose: Not Given Documented by: WILL Non-Admin Reason: unable to swallow Fentanyl (Fentanyl 50 Mcg Patch.Td72) 50 mcg TRANSDERMA Q3D [facility] Last Admin: 09/11/21 18:00 Dose: 50 mcg Documented by: ANTOINETTE Lorazepam (Lorazepam 2 Mg/Ml Vial) 1 mg IVPUSH Q4H PRN PRN Reason: anxiety/restlessness Morphine Sulfate (Morphine Sulfate 2 Mg/Ml Cartridge) 2 mg IVPUSH Q1H PRN PRN Reason: Discomfort/Shortness of breath Last Admin: 09/12/21 10:15 Dose: 2 mg Documented by: WILL Pharmacy Consult (Consult Rx Perform Med Rec) 1 each MISCELLANE ONCE PRN PRN Reason: Consult order Scopolamine (Scopolamine 1.5 Mg Patch.Td.3) 1.5 mg TRANSDERMA Q72H [facility] Last Admin: 09/10/21 14:03 Dose: 1.5 mg Documented by: ZHOU Sodium Chloride (0.9 % Sodium Chloride Flush 3 Ml Syringe) 3 ml IVFLUSH QSHIFT IVÁN Last Admin: 09/12/21 09:14 Dose: 3 ml Documented by: WILL Labs CBC & Chem 7: 09/12/21 06:18 09/12/21 06:18 Labs: Laboratory Results - last 24 hr 09/11/21 09/12/21 09/12/21 13:00 06:18 06:18 MCV 99.6 H MCH 29.6 MCHC 29.8 L RDW 15.3 Plt Count 267 MPV 10.7 Absolute Nucleated RBC 0.000 Nucleated RBC % (auto) 0.0 PT 17.1 H INR 1.5 H Anion Gap 14 Estim Creat Clear Calc 38.8 Estimated GFR > 60 Fasting Glucose 236 H Calcium 10.4 H 09/12/21 06:18 MCV MCH MCHC RDW Plt Count MPV Absolute Nucleated RBC Nucleated RBC % (auto) PT 17.1 H INR 1.5 H Anion Gap Estim Creat Clear Calc Estimated GFR Fasting Glucose Calcium Assessment and Plan (1) Acute and chronic respiratory failure with hypoxia: Status: Acute (2) Acute on chronic diastolic CHF (congestive heart failure): Status: Acute Assessment and Plan: 85F presented with hypoxia and le weakness, this AM complicated by severe hypoxia and AMS # acute on chronic hypoxic and hypercapneic respiratory failure due to acute on chronic diastolic chf # moderate AI and moderate MS # complicated by metabolic encephalopathy 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 she wore bipap for about 24hrs to allow family members to come in to see her, she improved and decided to change from COMPUTER TESTER back to DNR/DNI with conservative disease directed treatments. on bedside echo, appeared to have about 50% IVC collapse on inspiration CXR from 09/10/21 showed opacification of left lung, plan for CT chest to determine proportion of atelectasis vs pleural effusion to see if patient would benefit from thoracocentesis (she would be open to one if needed) recorded fluid balance -6L More lethargic, sleepy and encephalopathic today Healthcare proxy invoked , HCP decided to change the patient's status to hospice care. given overall poor prognosis, hospice team consult placed DC labs, vitals and monitoring Start Ativan, morphine, scopolamine for comfort Quality Stroke Does the patient have a stroke diagnosis?: No VTE Prior VTE?: Yes VTE Risk Level:: Medical - moderate - high VTE Device Contraindication: Treatment Not Indicated VTE Drug Contraindication: N/A - Med Ordered
--- NOTE | 2021-09-12 13:28 | MHC.CM.PN ---
pt is eligible to be gip..waiting to hear from percy larson re acceptance of pt
[2021-09-12] MEDS: LORazepam 2 MG/ML VIAL 1 MG IVPUSH ×2 (14:03→22:16)
--- NOTE | 2021-09-12 14:52 | MHC.CM.PN ---
pt declined by percy larson family agreeable to gip
[2021-09-12 15:04] VITALS: RESP 20
--- NOTE | 2021-09-13 00:51 | PM.EVENT ---
Event Note Date of Service: 09/13/21 Event Note: pt at 11:50pm 09/12
--- NOTE | 2021-09-13 07:41 | P.DS_ITS ---
DS: Providers Provider Date of Service: 09/13/21 Date of admission: 09/05/21 14:47 Primary care physician: Alli Logan MD Consults: 09/05/21 14:45 Consult to Pulmonology Routine Consulting Provider: Keith Manzo Reason for consultation: copd DS: Diagnosis Discharge Diagnosis (1) Acute and chronic respiratory failure with hypoxia: Status: Acute (2) Acute on chronic diastolic CHF (congestive heart failure): Status: Acute (3) CO2 retention: Status: Acute (4) Afib: Status: Acute (5) Metabolic encephalopathy: Status: Acute DS: Summary Hospital Course Hospital Course: Admission note HPI 85F with pmh of chornic diastolic chf, chronic hypoxic respiratory failure on 1L home o2 for copd, brought in for hypoxia. patient has had worsening lower extremity weakness and 10Lbs weight gain over the past few weeks. she recently added on metolazone to her bumex. she was noted to be significantly hypoxic at home, in the 70s, patient herself denies any sob. in ED? noted to have some vascular congestion on CXR, vbg showed ph 7.38, pco2 96, bicarb 47.? she was given iv bumex and steroids. Hospital course The patient was admitted for acute on chronic hypoxic and hypercapneic respiratory failure due to acute on chronic diastolic chf complicated by metabolic encephalopathy. Echo was done showing moderate AI and moderate MS. Treated with Bumex with poor response as the patient continued to get weaker and more dyspneic. 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 she wore bipap for about 24hrs to allow family members to come in to see her, she improved on BiPAP and became more alert and talking, she changed back from CARDIOPULMONARY TECHNOLOGIST to DNR/DNI with conservative disease directed treatments. The next morning the patient was altered mentation. You her healthcare proxy decided to change her status to hospice care. Discussed with hospice team who evaluated the patient and recommended she IP hospice. The patient started on comfort measures and at 11:50pm 09/12. Time Spent with Patient Time attestation: Total time spent providing and/or coordinating discharge services: Discharge coordination time: Greater than 30 minutes Quality: Stroke Does the patient have a stroke diagnosis?: No Physical Exam Vital Signs: Vital Signs: Last Vital Signs Temp 96.8 F 09/12/21 06:59 Pulse 110 H 09/12/21 06:59 Resp 20 09/12/21 15:04 BP 112/58 L 09/12/21 06:59 Pulse Ox 90 L 09/12/21 06:59 Oxygen Flow Rate 1 09/05/21 09:38 BMI result Body Mass Index 25.4 Const: Other: DS: Data Data Completed and Pending Labs on day of discharge: Laboratory Results - last 24 hr 09/12/21 06:18 Sodium 148 H Potassium 3.2 L Chloride 97 Carbon Dioxide 40 H* Anion Gap 14 Calcium 10.4 H Discharge Plan Discharge Date/Time: 09/12/21 23:50 Patient Disposition: Referrals: Alli Logan MD [Primary Care Provider] - 1 Week Discharge Medications: No Action latanoprost 0.005 % drops 1 drp ophthalmic (eye) BEDTIME RF: 0 fentanyl 50 mcg/hr patch 72 hour 1 patch topical Q3D RF: 0 bumetanide 2 mg tablet 2 mg PO SUTUTHSA@2100 RF: 0 metolazone 5 mg tablet 5 mg PO SA@0900 RF: 0 warfarin 2.5 mg tablet 2.5 mg PO DAILY@1800 RF: 0 amlodipine 2.5 mg tablet 2.5 mg PO DAILY RF: 0 allopurinol 100 mg tablet 100 tab PO DAILY RF: 0 brimonidine 0.2 % drops 1 drp ophthalmic (eye) BID RF: 0 gabapentin 100 mg capsule 200 mg PO BEDTIME RF: 0 albuterol sulfate 90 mcg/actuation HFA aerosol inhaler 2 puff inhalation Q4H PRN (Reason: Wheezing) RF: 0 ezetimibe 10 mg tablet 10 mg PO DAILY RF: 0 Incruse Ellipta 62.5 mcg/actuation blister with device 1 puff inhalation DAILY RF: 0 multivitamin Tablet 1 tab PO DAILY RF: 0 bumetanide 2 mg tablet 4 mg PO MOWEFR@2100 RF: 0 lactase [Lactaid] 3,000 unit Tablet 3,000 unit PO QID PRN (Reason: gi upset) RF: 0 docusate sodium [Colace] 100 mg Capsule 100 mg PO DAILY RF: 0 aspirin 81 mg Tablet,Chewable 81 mg PO DAILY RF: 0 PreserVision AREDS [id number] Capsule 1 cap PO BID RF: 0 cholecalciferol (vitamin D3) [Vitamin D3] 50 mcg (2,000 unit) Tablet 50 mcg PO DAILY RF: 0 red yeast rice 600 mg Tablet 600 mg PO DAILY RF: 0 Fiber Gummies 2 gram Tablet,Chewable 8 g PO DAILY RF: 0 Align 10.5 mg (10 million cell) Tablet,Chewable 10.5 mg PO DAILY RF: 0 Discharge Date/Time: 09/13/21 01:30
== END 2021-09-12 23:50 | disposition expired | DRG 291 ==
LOC: HO.ED 11:45 → HO.EDOVER 14:56 → HO.S3 19:21 → HO.IMC 21:39
PROVIDERS: Admitting Provider Internal Medicine; Emergency Provider Emergency Medicine; PCP Internal Medicine; Visit Provider Student in an Organized Health Care Education/Training Program
DX: I50.33 Acute on chronic diastolic (congestive) heart failure (principal); J96.21 Acute and chronic respiratory failure with hypoxia; J96.22 Acute and chronic respiratory failure with hypercapnia; G93.41 Metabolic encephalopathy; I48.20 Chronic atrial fibrillation, unspecified; J44.1 Chronic obstructive pulmonary disease with (acute) exacerbation; E87.6 Hypokalemia; D75.89 Other specified diseases of blood and blood-forming organs; Z87.891 Personal history of nicotine dependence; I35.2 Nonrheumatic aortic (valve) stenosis with insufficiency; Z20.822 Contact with and (suspected) exposure to COVID-19; Z86.718 Personal history of other venous thrombosis and embolism; Z99.81 Dependence on supplemental oxygen; Z91.040 Latex allergy status; Z88.0 Allergy status to penicillin; Z88.2 Allergy status to sulfonamides; Z79.01 Long term (current) use of anticoagulants; Z79.899 Other long term (current) drug therapy; Z66 Do not resuscitate; Z51.5 Encounter for palliative care; Z85.51 Personal history of malignant neoplasm of bladder
CPT/HCPCS: 36415; 36600; 70450; 71045; 71250; 80048; 80076; 81001; 82607; 82746; 82803; 83735; 83880; 84439; 84443; 84484; 85025; 85027; 85610; 85730; 87086; 87635; 93005; 94640; 94660; 97162; 97530; 99285; 99497; C1758; J0696; J2060; J2270; J2930